=== PATIENT | male | born 1945 | race Caucasian/White ===

== ENCOUNTER 2016-09-29 | Outpatient (CLI) | payer MEDICARE, OTHER | END 2016-09-29 17:17 | disposition short-term general hospital (02) | CPT/HCPCS: A0170; A0425; A0426 ==

== ENCOUNTER 2016-09-29 07:50 | Inpatient (IN) | payer MEDICARE, OTHER ==
[2016-09-29] MEDS ORDERED: IPRATROPIUM/ALBUTEROL 3 ML NEB INH STA (08:14)
[2016-09-29] MEDS ORDERED: IPRATROPIUM/ALBUTEROL 3 ML NEB INH ONE (08:18)
[2016-09-29] MEDS ORDERED: FUROSEMIDE 40 MG/4 ML VIAL IVP STA (08:48)
[2016-09-29] MEDS ORDERED: FUROSEMIDE 40 MG/4 ML VIAL ONE (08:50)
[2016-09-29] MEDS ORDERED: ONDANSETRON 4 MG/2 ML VIAL IVP PRN (12:50)
[2016-09-29] MEDS ORDERED: IPRATROPIUM/ALBUTEROL 3 ML NEB INH PRN (12:50)
[2016-09-29] MEDS ORDERED: HYDROcod/ACETAM 10 MG/325 MG TABLET PO PRN (12:50)
[2016-09-29] MEDS ORDERED: HYDROcod/ACETAM 5/325 MG TABLET PO PRN (12:50)
[2016-09-29] MEDS ORDERED: ACETAMINOPHEN 325 MG TABLET PO PRN (12:50)
[2016-09-29] MEDS ORDERED: SODIUM CHLORIDE FLUSH 0.9% 10 ML SYRINGE IVP PRN (12:50)
[2016-09-29] MEDS ORDERED: METOPROLOL SUCCINATE 50 MG TABLET PO SCH (13:00)
[2016-09-29] MEDS ORDERED: LISINOPRIL 5 MG TABLET PO SCH (13:30)
[2016-09-29] MEDS ORDERED: SODIUM CHLORIDE FLUSH 0.9% 10 ML SYRINGE IVP SCH (14:00)
[2016-09-29] MEDS ORDERED: FUROSEMIDE 40 MG/4 ML VIAL IVP SCH (14:00)
[2016-09-29] MEDS ORDERED: NICOTINE 21 MG PATCH TOP SCH (14:30)
[2016-09-29] MEDS ORDERED: ASPIRIN 325 MG TABLET PO SCH (16:00)
[2016-09-29] MEDS ORDERED: HEPARIN 25,000 UNITS/500 ML 500 ML IV SCH (16:00)
[2016-09-29] MEDS ORDERED: ATORVASTATIN 40 MG TABLET PO ONE (16:00)
[2016-09-29] MEDS ORDERED: HEPARIN 5,000 UNIT/ML VIAL IVP ONE (16:30)
[2016-09-30] MEDS ORDERED: PANTOPRAZOLE 40 MG TABLET PO SCH (07:00)
[2016-09-30] MEDS ORDERED: POTASSIUM CHLORIDE 20 MEQ TABLET PO SCH (08:00)
[2016-09-30] MEDS ORDERED: ENOXAPARIN 40 MG/0.4 ML SYRINGE SUBQ SCH (09:00)
[2016-09-30] MEDS ORDERED: ASPIRIN EC 81 MG TABLET PO SCH (09:00)
[2016-09-30] MEDS ORDERED: POLYETHYLENE GLYCOL 3350 17 GM PACKET PO SCH (09:00)
== END 2016-09-29 17:15 | disposition short-term general hospital (02) | DRG 281 ==
DX: I25.10 Atherosclerotic heart disease of native coronary artery without angina pectoris (principal); R09.02 Hypoxemia; I50.9 Heart failure, unspecified; I21.4 Non-ST elevation (NSTEMI) myocardial infarction; E87.1 Hypo-osmolality and hyponatremia; I50.40 Unspecified combined systolic (congestive) and diastolic (congestive) heart failure; I11.0 Hypertensive heart disease with heart failure; Z95.5 Presence of coronary angioplasty implant and graft; J44.9 Chronic obstructive pulmonary disease, unspecified; F17.210 Nicotine dependence, cigarettes, uncomplicated; Z79.82 Long term (current) use of aspirin; Z79.51 Long term (current) use of inhaled steroids; Z79.899 Other long term (current) drug therapy; Z82.49 Family history of ischemic heart disease and other diseases of the circulatory system

== ENCOUNTER 2016-11-15 11:56 | Outpatient (CLI) | payer MEDICARE, OTHER ==
--- NOTE | 2016-11-15 13:07 | XRAY Report ---
TWO-VIEW CHEST: 11/15/2016 CLINICAL INDICATION: Cough, dyspnea. COMPARISON: 11/02/2010, 09/29/2016 FINDINGS: Frontal and lateral views of the chest demonstrate changes of previous cardiac surgery. T here are right greater than left basilar infiltrates present, with trace effusions. No pneumothorax. IMPRESSION: RIGHT GREATER THAN LEFT BASILAR INFILTRATES. JOB #: [id number] EXT JOB #:[id number]
== END 2016-11-15 11:57 | disposition home or self-care (01) ==
LOC: DI 11:56
PROVIDERS: ATTEND Internal Medicine
DX: R91.8 Other nonspecific abnormal finding of lung field (principal)
CPT/HCPCS: 71020

== ENCOUNTER 2018-06-26 09:40 | Outpatient (CLI) | payer MEDICARE, OTHER ==
--- NOTE | 2018-06-26 11:03 | XRAY Report ---
Reason: COUGH Procedure Date: 06/26/2018 Accession Number: [id number] / [id number] Procedure: XR - Chest 2 View X-Ray CPT Code: 65300 FULL RESULT: EXAM: CHEST RADIOGRAPHY EXAM DATE: 06/26/2018 09:52 AM. CLINICAL HISTORY: COUGH. COMPARISON: 11/15/2016. TECHNIQUE: 2 views. FINDINGS: Lungs/Pleura: Significantly improved aeration right lung compared to prior with residual peripheral right midlung scarring and persistent minimal right CP angle blunting. New airspace process left base with associated pleural effusion. Asymmetric pleural thickening left apex likely related to the effusion. Mediastinum: Heart and mediastinal contours are unremarkable except for poststernotomy changes. Other: Status post sternotomy with dehiscent superior sternal suture. IMPRESSION: New left lower lobe airspace process and pleural fluid appearing since 11/15/2016. Follow-up to complete radiographic clearing suggested. Changes of remote sternotomy. RADIA
== END 2018-06-26 09:41 | disposition home or self-care (01) ==
LOC: DI 09:40
PROVIDERS: ATTEND Internal Medicine
DX: R91.8 Other nonspecific abnormal finding of lung field (principal); J90 Pleural effusion, not elsewhere classified
CPT/HCPCS: 71046

== ENCOUNTER 2018-08-08 10:14 | Outpatient (CLI) | payer MEDICARE, OTHER ==
--- NOTE | 2018-08-08 11:08 | XRAY Report ---
Reason: COUGH Procedure Date: 08/08/2018 Accession Number: [id number] / [id number] Procedure: XR - Chest 2 View X-Ray CPT Code: 79303 FULL RESULT: EXAM: CHEST RADIOGRAPHY EXAM DATE: 08/08/2018 10:32 AM. CLINICAL HISTORY: Cough. COMPARISON: CHEST 2 VIEW 06/26/2018 9:45 AM. TECHNIQUE: 2 views. FINDINGS: Lungs/Pleura: There is persistent small layering pleural effusion at the left lung base with associated hazy opacity. A smaller right pleural effusion is also suspected. There is no new airspace disease. No pneumothorax. Mediastinum: Median sternotomy changes including tortuous calcified aorta and stable cardiac silhouette with prominent pulmonary arteries appear similar to prior. Other: None. IMPRESSION: Stable examination. Persistent opacification at the left lung base with associated pleural effusion. RADIA
== END 2018-08-08 10:15 | disposition home or self-care (01) ==
LOC: DI 10:14
PROVIDERS: ATTEND Internal Medicine
DX: R05 Cough (principal)
CPT/HCPCS: 71046

== ENCOUNTER 2018-11-21 11:17 | Outpatient (CLI) | payer MEDICARE, OTHER ==
[2018-11-21 11:31] LABS: VBG PH 7.332 (7.31-7.41)
[2018-11-21 11:41] LABS: ALBUMIN 3.8 g/dL (3.2-5.5); CALCIUM 9.1 mg/dL (8.5-10.3); CREATININE 0.8 mg/dL (0.6-1.2)
== END 2018-11-21 11:18 | disposition home or self-care (01) ==
LOC: LAB 11:17
PROVIDERS: ATTEND Internal Medicine
DX: D35.1 Benign neoplasm of parathyroid gland (principal)
CPT/HCPCS: 36415; 80048; 82040; 82330; 83970

== ENCOUNTER 2018-12-28 13:15 | Outpatient (CLI) | payer MEDICARE, OTHER ==
[2018-12-28] MEDS ORDERED: BUFFERED LIDOCAINE 10 ML SYRINGE ONE (14:15)
[2018-12-28] MEDS ORDERED: BUFFERED LIDOCAINE 10 ML SYRINGE IU ONE (16:09)
--- NOTE | 2018-12-28 16:12 | Ultrasound Report ---
Reason: NODULES Procedure Date: 12/28/2018 Accession Number: [id number] / [id number] Procedure: US - FNA Bx w/US Gnd les CPT Code: 48558 FULL RESULT: EXAM: Thyroid Fine Needle Aspiration EXAM DATE: 12/28/2018 01:41 PM. CLINICAL HISTORY: Nodules. COMPARISON: Outside thyroid ultrasound dated 10/10/2018. TECHNIQUE: The risks, benefits, and alternatives of the procedure were discussed with the patient. All questions were answered. Written and verbal consent were obtained. A site was marked over the right thyroid nodule in question under live sonographic evaluation, then subsequently prepped and draped in a sterile manner. Local anesthesia was performed with 1% lidocaine. A total of 4 passes with a 22 gauge were performed through the right thyroid nodule in question, then passed to the chemical compounder helper for preparation. Estimated blood loss was 0 mL. Sonographic images demonstrate needle placement within right thyroid nodule in question. Fluoroscopy Time: None. Number of Images: 33 sonographic images. FINDINGS IMPRESSION: Fine needle aspiration of the right thyroid nodule. Recommendation: Please note that multiple nodules on the left lobe of the thyroid are also moderately suspicious as noted on the previous report. Additionally, the patient has a vague history of previous thyroid surgery and the singular extrathyroidal hypoechoic nodule is greater than expected for size for a parathyroid adenoma raising concern for possible lymphadenopathy with atypia. Consider CT of the neck with intravenous contrast for further clarification of the soft tissue neck area to guide management and surveillance strategy for the left lobe of the thyroid as well as the nearby nodule. RADIA
== END 2018-12-28 13:16 | disposition home or self-care (01) ==
LOC: DI 13:15
PROVIDERS: ATTEND Internal Medicine
DX: E04.2 Nontoxic multinodular goiter (principal)
CPT/HCPCS: 10005

== ENCOUNTER 2019-01-10 10:45 | Outpatient (CLI) | payer MEDICARE, OTHER ==
[2019-01-10 11:09] LABS: CREATININE 0.6 mg/dL (0.6-1.2)
[2019-01-10] MEDS ORDERED: IOVERSOL 320 100 ML VIAL IVP ONE ×3 (11:11→14:29)
--- NOTE | 2019-01-11 13:13 | CT Report ---
Reason: PARATHYROID ADENOMA Procedure Date: 01/10/2019 Accession Number: [id number] / [id number] Procedure: CT - SOFT TISSUE NECK W/WO CPT Code: FULL RESULT: EXAM: CT SOFT TISSUE NECK WITH AND WITHOUT CONTRAST. EXAM DATE: 01/10/2019 12:11 PM. HISTORY: Parathyroid adenoma. COMPARISONS: PET NECK TO MID THIGH 09/26/2018 9:52 AM. TECHNIQUE: Routine soft tissue neck CT protocol. Reconstructions: Coronal and sagittal. IV contrast: ISOVUE 300 80 mL. Thin images in axial, coronal and sagittal planes were obtained without and with contrast in multiple phases. In accordance with CT protocol optimization, one or more of the following dose reduction techniques were utilized for this exam: automated exposure control, adjustment of mA and/or KV based on patient size, or use of iterative reconstructive technique. FINDINGS: Adenoma: There is a 3 mm arterially enhancing nodule just inferior to the left thyroid gland pole immediately adjacent to the hypertrophied thyroidal vein best seen on 10, image 218 series 9 and image 111 series 12. Washout is not established, possibly due to the adjacent thyroidal vein. Visualized Intracranial Contents: Unremarkable. Orbits: Symmetric and unremarkable. Sinuses: Visualized paranasal sinuses and mastoid air cells are clear. Oral cavity: The visualized oral cavity is unremarkable. The floor of the mouth is symmetric. Pharynx: Pharyngeal mucosa is unremarkable. The infratemporal fossa, parapharyngeal spaces, and retropharyngeal space are unremarkable. The base of the tongue is symmetric and unremarkable. The airway is patent. Larynx: Larynx and supraglottic airway are patent without mass lesion. Vocal cords are symmetric. The visualized trachea is unremarkable. Parotid and Submandibular Glands: Symmetric and unremarkable. Lymph Nodes: No enlarged lymph nodes are identified in the cervical, supraclavicular, and visualized superior mediastinal regions. Soft tissues: Soft tissues are unremarkable. No mass lesion or abnormal enhancement. Vascular Structures: There is severe atherosclerotic disease with greater than 50% narrowing of the vessel lumen and the bilateral carotid bifurcations. The proximal internal carotid artery lumen on the right measures 4.1 x 4.3 mm and is narrowed to 2.0 x 2.0 mm at the bifurcation as seen on image 123 series 9. Narrowing of the carotid lumen on the left is less severe with internal caliber of 5.0 x 2.0 mm on image 127 series 9 compared to a proximal ICA caliber of 4 x 5 mm. Thyroid Gland: Nodular, better characterized on the recent thyroid ultrasound. Lung: There is a 1.5 x 1.3 cm spiculated nodule in the left upper lung, see image 268 on axial images. Lymphadenopathy is seen in the mediastinum. Bones: No evidence of acute fracture or malalignment. There are moderate to severe degenerative changes of the cervical spine which are most pronounced at C5-C7. Other: None. IMPRESSION: Possible adenoma immediately inferior to the lower pole of the left thyroid gland immediately adjacent to the thyroidal vein. 1.5 x 1.3 cm spiculated nodule in the left upper lung, highly suspicious for malignancy. There is mediastinal lymphadenopathy and the visualized portion, FDG avid on prior PET/CT and presumably known. Bilateral visually significant carotid artery stenosis as measured above. RADIA
== END 2019-01-10 10:46 | disposition home or self-care (01) ==
LOC: LAB 10:45 → DI 10:46
PROVIDERS: ATTEND Internal Medicine
DX: D35.1 Benign neoplasm of parathyroid gland (principal); R91.1 Solitary pulmonary nodule; R59.0 Localized enlarged lymph nodes; I65.23 Occlusion and stenosis of bilateral carotid arteries
CPT/HCPCS: 36415; 70492; 82565; Q9967

== ENCOUNTER 2019-04-25 08:43 | Outpatient (CLI) | payer MEDICARE, OTHER ==
[2019-04-25] MEDS ORDERED: GADOBUTROL 10 MMOL/10 ML VIAL ONE (09:08)
[2019-04-25] MEDS ORDERED: GADOBUTROL 10 MMOL/10 ML VIAL IVP ONE (09:43)
--- NOTE | 2019-04-25 10:55 | MRI Report ---
Reason: LUNG CANCER, PARATHYROID ADENOMA Procedure Date: 04/25/2019 Accession Number: [id number] / [id number] Procedure: MRI - Brain W/WO CPT Code: FULL RESULT: EXAM: MRI BRAIN WITHOUT AND WITH CONTRAST EXAM DATE: 04/25/2019 09:52 AM. CLINICAL HISTORY: LUNG CANCER, PARATHYROID ADENOMA. COMPARISON: None. TECHNIQUE: Multiplanar, multisequence T1-weighted and fluid-sensitive MR sequences of the brain were performed. Sequences optimized for routine evaluation. Other: None. IV Contrast: Yes, without and with 7 mL Gadavist. FINDINGS: Parenchyma: No acute hemorrhage, mass, or infarct. Multiple areas of increased T2 signal involving white matter of bilateral cerebral hemispheres. No abnormal enhancement. Ventricles/Cisterns: Moderate enlargement of the lateral ventricles. Razo ratio 0.35. No mass-effect or midline shift. No abnormal extra-axial fluid collection or hemorrhage. Orbits: Symmetric and unremarkable. Sella Turcica: Unremarkable. IAC: Symmetric and unremarkable. Vasculature: Normal signal flow void is seen in the major arterial structures at the skull base. The dural sinuses are patent and enhance normally. Sinuses: No acute sinus disease. Bones: No focal pathologic appearing marrow signal changes. Other: None. IMPRESSION: 1. No evidence of intracranial metastatic disease. 2. Moderate microvascular white matter disease. 3. Moderate ventriculomegaly which may be seen with central volume loss or NPH. RADIA
== END 2019-04-25 08:44 | disposition home or self-care (01) ==
LOC: DI 08:43
PROVIDERS: ATTEND Internal Medicine Hematology & Oncology
DX: C34.90 Malignant neoplasm of unspecified part of unspecified bronchus or lung (principal); D35.1 Benign neoplasm of parathyroid gland; R90.82 White matter disease, unspecified; G93.89 Other specified disorders of brain
CPT/HCPCS: 70553; A9585

== ENCOUNTER 2019-04-28 12:11 | Emergency (ER) | payer MEDICARE, OTHER ==
--- NOTE | 2019-04-28 13:55 | ED Physician Documentation ---
History of Present Illness - Stated complaint Stated Complaint: MALE - Chief complaint Chief Complaint: General - History obtained from History obtained from: Patient - History of Present Illness Timing: Today (74-year-old gentleman with recent diagnosis of lung cancer, not currently under treatment yet. Had a PET scan yesterday. Last night he started to have progressive painless gross hematuria with some clots, and then this morning developed mild right flank pain. He is never had a kidney stone.) Review of Systems Constitutional: denies: Fever, Chills Cardiac: denies: Chest pain / pressure, Palpitations Respiratory: denies: Dyspnea, Cough GI: denies: Abdominal Pain, Nausea, Vomiting : reports: Frequency. denies: Dysuria PD PAST MEDICAL HISTORY - Past Medical History Cardiovascular: Hypertension, Coronary artery disease Respiratory: COPD Neuro: None Endocrine/Autoimmune: None GI: Colon polyps : None HEENT: None Psych: None Musculoskeletal: None Derm: None - Past Surgical History General: Appendectomy, Colonoscopy Cardiovascular: Coronary stent - Present Medications Home Medications: Ambulatory Orders Medication Instructions Recorded Confirmed Metoprolol Succinate [Toprol Xl] 50 mg PO DAILY 05/30/13 04/09/19 Aspirin Chewable [St Epi 81 mg PO DAILY 07/12/13 04/09/19 Aspirin] Albuterol Sulfate [Proair Hfa 2 puffs INH Q4H PRN 09/29/16 04/09/19 Inhaler] Ciprofloxacin HCl [Cipro] 500 mg PO BID #20 tablet 04/28/19 Hydrocodone/Acetaminophen 1 - 2 each PO Q6H PRN #14 tablet 04/28/19 [Hydrocodon-Acetaminophen 5-325] Lisinopril [Zestril] 20 mg PO 04/28/19 - Allergies Allergies/Adverse Reactions: Allergies Allergy/AdvReac Type Severity Reaction Status Date / Time No Known Drug Allergies Allergy Verified 04/28/19 12:24 - Social History Does the pt smoke?: Yes Smoking Status: Current every day smoker Does the pt drink ETOH?: No Does the pt have substance abuse?: No - Immunizations Immunizations: TDAP >10years/unknown - POLST Patient has POLST: No PD ED PE NORMAL - Vitals Vital signs reviewed: Yes - General General: Alert and oriented X 3, No acute distress - Cardiac Cardiac: RRR, No murmur - Respiratory Respiratory: No respiratory distress, Other (Wheezy) - Abdomen Abdomen: Soft, Non tender - Back Back: No CVA TTP, No spinal TTP - Extremities Extremities: No edema, No calf tenderness / cord - Neuro Neuro: Alert and oriented X 3, Normal speech - Psych Psych: Normal mood, Normal affect Results - Vitals Vitals: Vital Signs - 24 hr 04/28/19 04/28/19 12:23 15:42 Temperature 36.8 C Heart Rate 54 L 63 Respiratory 18 20 Rate Blood Pressure 158/60 H 204/74 H O2 Saturation 99 98 Oxygen O2 Source Room air - Labs Labs: Laboratory Tests 04/28/19 04/28/19 04/28/19 13:00 14:15 14:15 WBC 11.0 H RBC 4.43 L Hgb 13.7 L Hct 41.1 L MCV 92.8 MCH 30.9 MCHC 33.3 RDW 13.3 Plt Count 189 MPV 10.1 Neut # (Auto) 9.4 H Lymph # (Auto) 0.7 L Weld # (Auto) 0.8 Eos # (Auto) 0.1 Baso # (Auto) 0.1 Absolute Nucleated RBC 0.00 Nucleated RBC % 0.0 Sodium 133 L Potassium 4.2 Chloride 96 L Carbon Dioxide 27 Anion Gap 10.0 BUN 14 Creatinine 0.9 Estimated GFR (MDRD) 82 L Glucose 114 H Calcium 9.1 Total Bilirubin 0.9 AST 16 ALT 12 Alkaline Phosphatase 70 Total Protein 7.0 Albumin 3.9 Globulin 3.1 Albumin/Globulin Ratio 1.3 Lipase 26 Urine Color RED/BLOODY Urine Clarity CLOUDY Urine pH 5.5 Ur Specific [place] 1.025 Urine Protein >=300 H Urine Glucose (UA) NEGATIVE Urine Ketones TRACE Urine Occult Blood LARGE H Urine Nitrite POSITIVE H Urine Bilirubin NEGATIVE Urine Urobilinogen 1 (NORMAL) Ur Leukocyte Esterase TRACE H Urine RBC TNTC H Urine WBC 0-3 Ur Squamous Epith Cells RARE Squamous Urine Bacteria Moderate H Ur Microscopic Review INDICATED Urine Culture Comments INDICATED - Rads (name of study) CT IVP Radiology: EMP read contemporaneously (1. New right hydronephrosis, hydroureter demonstrating mildly hyperdense intraluminal material, possibly blood products in the setting of known hematuria. Delayed right nephrogram and absence of collecting system enhancement consistent with renal dysfunction. 2. Large rel atively narrow neck left inguinal hernia containing a loop of sigmoid colon without convincing obstruction or inflammation at this time. 3. Few mildly distended small bowel loops in the pelvis without discrete transition, may reflect a component of ileus. 4. Similar 34 mm infrarenal abdominal aortic aneurysm. 5. Similar loculated left pleural effusion, associated pleural- parenchymal opacity, right sided calcified pleural plaquing. 6. Other findings as noted above. ) PD MEDICAL DECISION MAKING - ED course ED course: 74-year-old gentleman presents with initially painless gross hematuria followed by flank pain. CT results and urinalysis as shown Case discussed by phone with Dr. Queen on-call for urology in [place], he recommends Cipro, pain control, and pushing oral fluids and outpatient follow-up. Departure - Departure Disposition: 01 Home, Self Care Clinical Impression: Pyelonephritis Hematuria Qualifiers: Hematuria type: gross Qualified Code(s): R31.0 - Gross hematuria Condition: Good Record reviewed to determine appropriate education?: Yes Instructions: Pyelonephritis Dc Prescriptions: Ciprofloxacin HCl [Cipro] 500 mg PO BID #20 tablet Hydrocodone/Acetaminophen [Hydrocodon-Acetaminophen 5-325] 1 - 2 each PO Q6H PRN #14 tablet PRN Reason: pain Comments: DRINK PLENTY OF FLUIDS, RETURN IF WORSE. I SPOKE WITH DR VIRGIE QUEEN, UROLOGY IN [place], CALL HIM FOR FOLLOWUP AT [phone]
[2019-04-28 14:06] LABS: BILIRUBIN,URINE NEGATIVE (NEGATIVE); GLUCOSE, URINE (UA) NEGATIVE (NEGATIVE); KETONES,URINE (UA) TRACE mg/dL (NEGATIVE); LEUKOCYTE ESTERASE, URINE TRACE (NEGATIVE); NITRITE,URINE POSITIVE (NEGATIVE); OCCULT BLOOD,URINE LARGE (NEGATIVE); PH,URINE 5.5 PH (5.0-7.5); PROTEIN,URINE >=300 mg/dL (NEGATIVE); UROBILINOGEN,URINE 1 (NORMAL) E.U./dL (NORMAL)
[2019-04-28 14:07] LABS: CLARITY,URINE CLOUDY (CLEAR)
[2019-04-28] MEDS ORDERED: IOVERSOL 320 100 ML VIAL IVP ONE ×2 (14:14→15:11)
[2019-04-28 14:28] LABS: BASOPHILS # (AUTO) 0.1 10^3/uL (0.0-0.1); BASOPHILS % (AUTO) 0.7 %; EOSINOPHILS # (AUTO) 0.1 10^3/uL (0.0-0.7); EOSINOPHILS % (AUTO) 0.5 %; HGB - HEMOGLOBIN 13.7 g/dL (14.0-18.0); LYMPHOCYTES # (AUTO) 0.7 10^3/uL (1.5-3.5); LYMPHOCYTES % (AUTO) 5.9 %; MEAN CORPUSCULAR HEMOGLOBIN 30.9 pg (27.0-31.0); MEAN CORPUSCULAR HGB CONC 33.3 g/dL (32.0-36.0); MEAN CORPUSCULAR VOLUME 92.8 fL (80.0-94.0); MEAN PLATELET VOLUME 10.1 fL (7.4-11.4); MONOCYTES # (AUTO) 0.8 10^3/uL (0.0-1.0); MONOCYTES % (AUTO) 6.8 %; NEUTROPHILS # (AUTO) 9.4 10^3/uL (1.5-6.6); NEUTROPHILS % (AUTO) 85.6 %; PLT - PLATELET COUNT 189 10^3/uL (130-450); RED BLOOD COUNT 4.43 10^6/uL (4.70-6.10); RED CELL DISTRIBUTION WIDTH 13.3 % (12.0-15.0)
[2019-04-28 14:33] LABS: BACTERIA,URINE Moderate /HPF (None Seen); RBC,URINE TNTC /HPF (0-5); SQUAMOUS EPITHELIAL CELL,UR RARE Squamous (<= Few)
[2019-04-28 14:50] LABS: ALBUMIN 3.9 g/dL (3.2-5.5); ALBUMIN/GLOBULIN RATIO 1.3 (1.0-2.2); BILIRUBIN,TOTAL 0.9 mg/dL (0.2-1.0); CALCIUM 9.1 mg/dL (8.5-10.3); CREATININE 0.9 mg/dL (0.6-1.2)
[2019-04-28] MEDS ORDERED: HYDROcod/ACETAM 5/325 MG TABLET PO STA (15:43)
--- NOTE | 2019-04-28 15:54 | CT Report ---
Reason: hematuria Procedure Date: 04/28/2019 Accession Number: [id number] / [id number] Procedure: CT - IVP CPT Code: FULL RESULT: EXAM: CT ABDOMEN AND PELVIS WITHOUT AND WITH CONTRAST (CT IVP) EXAM DATE: 04/28/2019 03:26 PM. CLINICAL HISTORY: Hematuria. COMPARISONS: ABDOMEN/PELVIS W/ 06/21/2016 8:50 AM ABDOMEN W/ 02/21/2019 8:28 AM PET NECK TO MID THIGH 09/26/2018 9:52 AM. TECHNIQUE: Routine helical imaging was performed through the kidneys, ureters and bladder in the precontrast, postcontrast and delayed phase. IV Contrast: OPTI 320 100ML. Reconstructions: Coronal and sagittal. In accordance with CT protocol optimization, one or more of the following dose reduction techniques were utilized for this exam: automated exposure control, adjustment of mA and/or KV based on patient size, or use of iterative reconstructive technique. FINDINGS: Lung Bases: Similar small loculated left pleural effusion and associated left basal pleural-parenchymal opacity, may reflect rounded atelectasis. Cardiomegaly. Coronary artery calcifications and/or stenting. Sternal wires. Calcified pleural plaquing on the right similar to prior. Liver: Similar calcified presumed hepatic granulomata. No new liver lesion. Gallbladder/Bile Ducts: Partially contracted gallbladder. No ductal enlargement. Spleen: Normal. Pancreas: Normal. Adrenal Glands: Stable 20 x 14 mm right adrenal nodule with attenuation measuring -4.0 HU, consistent with adenoma. Kidneys/Bladder: Right Kidney/Ureter: No renal or ureteral stones. Probable tiny right renal cortical cyst. Mild right hydronephrosis and hydroureter extending to the level of the urinary bladder. There is mildly hyperdense material in the right renal pelvis and ureter on the noncontrast images, may represent blood products in the setting of known hematuria, without significant enhancement on delayed images, degrading evaluation for intraluminal lesion. There is delayed nephrogram on the right with areas of mild cortical inhomogeneity. There is asymmetric right perinephric stranding.No convincing solid renal cortical mass. Left Kidney/Ureter: No renal or ureteral stones. No hydronephrosis or hydroureter. No masses. On delayed images, no collecting system filling defect. Bladder: Minimally distended with partial dependent opacification on delayed images. No obvious mass or wall thickening. No definite bladder calculi. Peritoneal Cavity/Bowel: No free air or free fluid. There is a large left inguinal hernia measuring up to at least 80 x 40 mm transverse with a 32 mm neck. There is indwelling sigmoid colon. No definite obstruction or inflammation at this time. No mass or acute inflammatory process. There is several loops of mildly distended small bowel in the pelvis without discrete transition, decompressed proximal loops, may reflect a component of ileus. No lymphadenopathy. Pelvic Organs: Mild prostatomegaly. Vasculature: There is diffuse aortoiliac atherosclerotic calcification. There is a fusiform infrarenal abdominal aortic aneurysm measuring 32 x 34 mm transverse, similar to prior. Bones: No acute fracture or suspicious bony lesion. Other: None. IMPRESSION: 1. New right hydronephrosis, hydroureter demonstrating mildly hyperdense intraluminal material, possibly blood products in the setting of known hematuria. Delayed right nephrogram and absence of collecting system enhancement consistent with renal dysfunction. 2. Large relatively narrow neck left inguinal hernia containing a loop of sigmoid colon without convincing obstruction or inflammation at this time. 3. Few mildly distended small bowel loops in the pelvis without discrete transition, may reflect a component of ileus. 4. Similar 34 mm infrarenal abdominal aortic aneurysm. 5. Similar loculated left pleural effusion, associated pleural-parenchymal opacity, right sided calcified pleural plaquing. 6. Other findings as noted above. RADIA ADDENDUM: 04/28/19 16:13 Discussed by phone with Dr. Perry on 04/28/2019 at 1613 hrs.
[2019-04-28] MEDS ORDERED: CIPROFLOXACIN 250 MG TABLET PO STA (16:49)
[2019-04-28 16:59] VITALS: BP 188/74
== END 2019-04-28 17:04 | disposition home or self-care (01) ==
LOC: ED 12:11
DX: N12 Tubulo-interstitial nephritis, not specified as acute or chronic (principal); R31.0 Gross hematuria; C34.90 Malignant neoplasm of unspecified part of unspecified bronchus or lung; J44.9 Chronic obstructive pulmonary disease, unspecified; J90 Pleural effusion, not elsewhere classified; F17.200 Nicotine dependence, unspecified, uncomplicated; I10 Essential (primary) hypertension; K40.90 Unilateral inguinal hernia, without obstruction or gangrene, not specified as recurrent; I71.4 Abdominal aortic aneurysm, without rupture; Z79.82 Long term (current) use of aspirin
CPT/HCPCS: 36415; 74178; 80053; 81001; 83690; 85025; 87086; 99283; 99284; A9270; Q9967; 81003

== ENCOUNTER 2019-11-20 13:47 | Outpatient (CLI) | payer MEDICARE, OTHER ==
--- NOTE | 2019-11-20 16:51 | SLEEP CARE CONSULTATION ---
Information from patient questionnaire entered by Radha Vargas. I have reviewed and concur with the information entered by Radha Vargas. This document represents the service I personally performed and the decisions made by me, Keven Lundberg MD, [facility]. History of Present Illness Reason for Visit: New patient Chief Complaint: reports: Snoring, Observed pauses in breathing Duration of Symptoms: 10 years Usual bedtime: 8:30pm Time it takes to fall asleep: 5 minutes Snores at night: Yes Observed to quit breathing while asleep: Yes Sleeps alone due to snoring: Yes Number of times waking at night: 3 Reasons for waking at night: reports: Bathroom Toss, Turn, or Twitch while sleeping: No Recalls having dreams: Yes Usually gets out of bed at: 8am Feels refreshed in the morning: Yes Morning headache: No Sleepy or fatigued during the day: No Ever fallen asleep while driving: No Takes day naps: No Dreams during day naps: No Prior sleep studies: No Additional HPI information: I had the pleasure of seeing Mr. Pollard today regarding the possibility of him having a sleep disorder. As you know, he is a 74 year old gentleman who complains of loud snore, observed apneas, and excessive daytime sleepiness for about 10 years. The patient tells me that he normally goes to bed around 8:30 pm, and it takes him approximately 5 minutes to fall asleep. He has been told that he snores loudly and irregularly at night. He has also been observed to stop breathing in his sleep. His has to sleep in a separate room. He can recall waking up on the average of 3 times during the night. Most of the time he wakes up because of having to use the bathroom. He has never awakened because of his own snoring, choking, oir having to gasp for air. There is not a lot of tossing and turning in his sleep. No somniloquy (sleep talking) or somnambulism (sleep walking). Generally he can recall having dreams. In the morning he usually gets up out of the bed around 8 a.m. not feeling refreshed nor rested. He usually does not have a morning headache. During the day he complains of feeling sleepy and fatigued. His score on [place] Sleepiness Scale is 13 out of 24. He has never fallen asleep while driving nor has had any accident due to sleepiness. He usually does not take naps during the day. Upon falling asleep during the day he denies having vivid dreams. He has never had sleep paralysis, experienced cataplexy or symptoms of restless leg syndrome. He denies having impaired concentration during the day. - Parasomnia Symptoms Ever been unable to move upon waking from sleep: No Ever felt weak in the knees when startled or emotional: No Bothered by creepy, crawly, restless sensations in legs: No Problems with memory or concentration: No Subjective Initial [place] Sleepiness Scale score: 13 Past Medical History Past Medical History: reports: Congestive Heart Failure, Coronary Heart Disease, Impotence Social History The patient's occupation is retired. Patient is and lives in [place]. Have you smoked in the past 12 months: Yes Cigarettes per day (20/pack): 10 Years of smokin Smoking Pack Years: 30.0 Alcohol use: Yes Alcohol amount and frequency: 2-3 daily Caffeine use: Yes Caffeine amount and frequency: 16 oz Family History Family history of sleep disordered breathing: No Allergies and Home Medications Drug allergies reviewed: Yes (NKDA) Home medication list reviewed: Yes (aspirin, ranitidine, losartan, metoprolol, Lipitor, bupropion, Spiriva) Review of Systems Weight loss over past 5 years: 40 Cardiovascular: reports: high blood pressure, leg or foot swelling, have to sleep sitting up Respiratory: reports: shortness of breath, wheeze, chronic cough Gastrointestinal: reports: heartburn Urinary: reports: frequency Neurological: denies: headaches, seizure, head trauma, disorientation, speech dysfunction, gait or balance problems, fainting or unconsciousness, other Psychiatric: denies: Attention Deficit Hyperactivity, anxiety, depression, mood disorder, claustrophobia, other Ear/Nose/Throat: reports: nose bleeds, wisdom teeth removed Endocrine: denies: thyroid disease, history of goiter, sluggishness, too hot or cold, excessive thirst, increased appetite, increased urination, unexplained weakness, other Musculoskeletal: denies: joint pain, neck pain, back pain, joint swelling, muscle pain or cramping, mobility problems, other Immunologic: reports: sneezing Physical Exam Vital signs obtained and entered by: Physical exam is deferred due to the COVID- 19 pandemic. Height: 6 ft Weight: 161 lb Body Mass Index: 21.8 BMI Classification: Healthy weight Impression and Plan IMPRESSION: 1. Obstructive Sleep Apnea-Hypopnea Syndrome, as suggested by history of loud and irregular snoring, observed cessation of breath while asleep, frequent awakenings during the night, unrefreshed sleep, and daytime hypersomnolence. Narrow oropharynx and obesity are common predisposing factors for obstructive sleep apnea-hypopnea syndrome. Pathophysiology of sleep-disordered breathing was discussed. I recommend proceeding to polysomnography to confirm the diagnosis and to assess severity. If he has significant sleep disordered breathing, a manual CPAP titration study will also be performed to find the optimal treatment pressure. I informed the patient of what the sleep studies involve and after some discussion, he agreed to proceed. Plan: 1. Schedule an in-laboratory polysomnography. 2. Avoid long distance driving or when feeling sleepy. 3. Avoid alcohol, sedative and muscle relaxant around bedtime. 4. Quit smoking cigarettes. 5. Return in 1 to 2 weeks after the study to discuss results and initiate therapy. I spent 100% of this visit face to face with the patient with greater than 50% of this was spent time counseling the patient and coordination of care.
== END 2019-11-20 13:48 | disposition home or self-care (01) ==
LOC: SC 13:47
PROVIDERS: ATTEND Internal Medicine Pulmonary Disease
DX: G47.10 Hypersomnia, unspecified (principal); R06.81 Apnea, not elsewhere classified; G47.8 Other sleep disorders; R06.83 Snoring
CPT/HCPCS: 99203; G0463; 99212

== ENCOUNTER 2019-11-24 20:20 | Outpatient (CLI) | payer MEDICARE, OTHER | END 2019-11-24 20:21 | disposition home or self-care (01) | LOC: SC 20:20 | PROVIDERS: ATTEND Internal Medicine Pulmonary Disease | DX: G47.33 Obstructive sleep apnea (adult) (pediatric) (principal); G47.61 Periodic limb movement disorder | CPT/HCPCS: 95810 ==

== ENCOUNTER 2020-01-24 15:16 | Outpatient (CLI) | payer MEDICARE, OTHER ==
--- NOTE | 2020-01-24 14:00 | SLEEP CARE CONSULTATION ---
Information from patient questionnaire entered by Radha Vargas. I have reviewed and concur with the information entered by Radha Vargas. This document represents the service I personally performed and the decisions made by me, Jen Crow, RN, MSN, [employer]. History of Present Illness Service Date and Time: 01/24/2020 1330 Initial [place] Sleepiness Scale score: 13 (in 2019) Additional HPI information: GUALBERTO VALENZUELA returns for a telemed follow up to discuss results of the recently performed polysomnography. I explained the pathophysiology behind obstructive sleep apnea. We then spent quite a bit of time discussing different treatment options. For mild obstructive sleep apnea, surgery and oral appliance are alternatives to nasal CPAP therapy but in moderate or severe cases, nasal CPAP is the most effective and reliable treatment. After some discussion, the patient opted to go with the nasal CPAP therapy. Nasal autoCPAP set at [id number] will be ordered with rationale explained. A manual titration study will be ordered if unable to find optimal pressure with office adjustments. I explained how CPAP machine works and what to expect when using the machine. Using CPAP every night in order to get used to it was emphasized. Patient a dvised to put CPAP mask on before getting into bed so as not to fall asleep without CPAP. To assist acclimation to CPAP use, it could also be used for a short time during day while reading or watching TV. The patient was instructed to call the CPAP supplier to discuss any mechanical problem that may occur. If the mask given is uncomfortable or is difficult to keep on through the night even with adjustment, contact the CPAP supplier as many will replace with another mask style if notified before 30 days. If snoring or perceives is not getting enough air or too much air from the machine, notify this office. AASM patient education PAP tips will be sent to patient. Patient counseled not drink alcohol less than 4 hours before bedtime as it can increase snoring and apnea. Patient was cautioned about risks of drowsy driving until sleepiness symptoms resolve. Sleep Study - Results Polysomnography/Home Sleep Study results: The quality of the study is good. The patient had very poor sleep efficiencythe patient was awake almost throughout the night. The sleep architecture was abnormal for sleep fragmentation and reduced amount of time spent in REM and slow wave sleep (N3). Respiratory monitoring showed mild obstructive sleep apneahypopnea (AHI = 6.3) associated with frequent arousals, oxyhemoglobin desaturation and mild hypoxia (nakul oxygen saturation of 88%). The patient only slept supine during this study (supine AHI = 6.3; non-supine = 0.00). Snore was light to loud in intensity. There was severe periodic leg movement of sleep contributing to the sleep fragmentation. Cardiac rhythm was sinus rhythm with occasional premature ventricular contractions. No abnormal behavior (parasomnia) observed during the night. Physical Exam Height: 6 ft Impression and Plan 1. Obstructive Sleep Apnea-Hypopnea Syndrome, mild, with lowest oxygen saturation of 88%. Possibly this is the cause of the patients symptoms of unrefreshed sleep, and excessive daytime sleepiness. Positive pressure therapy could benefit his insomnia. As mentioned above, the patient will be started on nasal autoCPAP therapy with pressure set at 4-15 cmH2O. A manual titration study will be completed if unable to find optimal treatment pressure with office adjustments. Compliance guidelines also reviewed. A copy of compliance guidelines will be sent to patient with AASM PAP tips. 2. Periodic limb movement, severe, that did fragment patients sleep. Periodic limb movement of sleep (PLMS) is characterized by episodes of repetitive limb movements that occur during sleep and usually involve the lower limbs. The etiology is unknown but can be associated with restless leg syndrome (RLS), neuropathy, spinal cord diseases, kidney disease, rheumatological disorders, narcolepsy, obstructive sleep apnea, and REM sleep behavior disorder. Other factors that can increase PLMS and/or RLS are heredity and iron deficiency as reflected by a low serum ferritin level below 50 to 75mcg / L. Several medications can precipitate or aggravate PLMS such as selective serotonin re- uptake inhibitor antidepressants, tricyclic antidepressants, lithium, and dopamine receptor antagonists with the exception of bupropion. Caffeine can also aggravate PLMS and should be avoided. Sleep hygiene methods can also improve sleep as well as lifestyle changes such as regular exercise. Patient was further evaluation is indicated as it fragmented his sleep. * Nasal auto CPAP therapy, pressure at 4-15 cm H2O. * Avoid alcohol consumption near bedtime. * Follow up with PCP to rule out etiology of PLMS. * The patient is again cautioned about driving until sleepiness completely resolves. * Return one month after CPAP obtained. I will assess response to therapy and compliance at that time. Visit Type: Telehealth Phone (to reduce risk of Covid 19 exposure) Patient Location: Home Location of Provider: Home Patient agrees and consents to this telehealth visit type: Yes Patient agrees to have their insurance billed: Yes Time Spent with Patient (minutes): 10+ Provider Statement: I spent 100% of the Telehealth Phone Call with the patient with greater than 50% spent counseling the patient and coordination of care.
== END 2020-01-24 15:17 | disposition home or self-care (01) ==
LOC: SC 15:16
PROVIDERS: ATTEND Nurse Practitioner Family
DX: G47.33 Obstructive sleep apnea (adult) (pediatric) (principal); G47.61 Periodic limb movement disorder

== ENCOUNTER 2020-03-27 13:48 | Outpatient (CLI) | payer MEDICARE, OTHER ==
--- NOTE | 2020-03-27 15:09 | SLEEP CARE CONSULTATION ---
Information from patient questionnaire entered by Justine Young. I have reviewed and concur with the information entered by Justine Young. This document represents the service I personally performed and the decisions made by me, Jen Crow, RN, MSN, CONTAINER SHOP WELDER. History of Present Illness Service Date and Time: 03/27/2020 1348 Previous diagnosis: Mild, Obstructive Sleep Apnea-Hypopnea Syndrome AHI: 6.3 Reason for follow up: first compliance Equipment type: CPAP Equipment obtained from: [facility] (in [place]- delay due to office move) Mask style: Nasal Backup mask available: No (keep current mask as spare when replaced) Last cushion change: ordered but have not received Prior sleep studies: Yes Year and Where: 2019 [facility] Type of Sleep Study: Polysomnography CPAP Compliance Data - Data Reviewed with Patient Average duration of nightly device use: 6h 23m Compliance rate %: 93 Current pressure setting (cmH2O): 4-15 Humidity setting: auto Heated hose setting: auto Average residual AHI: 24.9 (95th % 7.0 cmH20) Central apnea: 0.1 Obstructive apnea: 0.5 Hypopnea: 0.9 / unknown 23.4 Average large leak: 32 liters per minute Subjective Patient concerns: denies: mask discomfort, air blowing in eyes, mask leak noise, condensation in mask/hose, nasal congestion, dry mouth, nose, throat, epistaxis (none since starting ) Observed to snore while using device: No (single ) Current pressure setting perceived as: comfortable On therapy, patient: reports: sleeping better (reduced awakenings from 3-4 to use bathroom to 1 time a night/ less nmber of hours needed to feel ), awakening more refreshed, being more awake and alert during the day, more rested overall. denies: drowsiness while driving Initial [place] Sleepiness Scale score: 13 Allergies and Home Medications Known drug allergies: No Home medication list reviewed: No ( no changes ) Allergy and home medication list: metoprolol 100mg daily statin Hs asa 81mg short steroid course for a month for lung congestion by his oncologist Review of Systems Review of systems same as previous: No (lung congestion ) Physical Exam Blood Pressure: 160/62 (180/80 usually home / Dr aware monitoring) Cuff size: regular Heart Rate: 55 O2 Saturation: 96 Height: 6 ft Weight: 176 lb Body Mass Index: 23.8 BMI Classification: Healthy weight Impression and Plan 1. Obstructive Sleep Apnea-Hypopnea Syndrome, mild, with good treatment compliance and moderate elevation elevation of residual AHI that appears to be due to mask leaks. Despite that on CPAP therapy, the patient has better sleep quality and is significantly more rested overall. The patients pressure will be changed to autoCPAP 8-12 cmH20 For elevation of residual AHI. Patient advised to contact me if pressure change is uncomfortable so that it can be adjusted. Goals for apnea control discussed.To reduce mask leaks, he was advised to slightly tighten his mask headgear as well as change his cushions every 2 weeks when obtains. If mask leaks continue, I will discuss at next visit switching to nasal pillows to see if more effective. He has a miranda and mustache which can affect mask seal. He trimmed his mustache a week ago and this is when the residual started to lower. I showed him sample - Patient's apnea severity and rationale for treatment to reduce apnea, improve sleep quality and reduce cardiovascular and cerebrovascular events was reviewed. I also reviewed the benefit of consistent device use of CPAP for hypertension. * Changeauto CPAP pressure to 8-12 cmH2O * Notify me if snoring with mask or feeling that the pressure is too much or too little * Adjust mask and change cushions. * Call this office if any problems using CPAP * Return for follow up in 1 month , or sooner if concerns arise Visit Type: In Office Time Spent with Patient (minutes): 30 Provider Statement: I spent 100% of the Face to Face Visit with the patient with greater than 50% spent counseling the patient and coordination of care.
[2020-03-27 15:10] VITALS: BP 160/62
== END 2020-03-27 13:49 | disposition home or self-care (01) ==
LOC: SC 13:48
PROVIDERS: ATTEND Nurse Practitioner Family
DX: G47.33 Obstructive sleep apnea (adult) (pediatric) (principal)
CPT/HCPCS: 99214; G0463; 99212

== ENCOUNTER 2020-05-11 16:23 | Outpatient (CLI) | payer MEDICARE, OTHER ==
--- NOTE | 2020-05-11 17:32 | Ultrasound Report ---
PROCEDURE: Duplex Ext Veins Left INDICATIONS: LT LEG SWELLING TECHNIQUE: Real-time imaging, as well as color and pulse Doppler interrogation, were performed of the lower extr emity deep veins from the inguinal ligament to the popliteal fossa. COMPARISON: None. FINDINGS: The deep veins are normally compressible, and free of intraluminal thrombus. Color and pu lse Doppler demonstrate normal phasic intraluminal flow. There is normal augmentation response to di stal compression maneuver. Note is made of arterial atherosclerotic plaque. A presumed Oliva's cyst is seen that measures up to 4.1 cm. IMPRESSION: No findings of deep venous thrombosis are seen. Arterial atherosclerotic plaque noted. Reviewed by: Jose G Crawford MD on 05/11/2020 4:31 PM JUANA Approved by: Jose G Crawford MD on 05/11/2020 4:31 PM JUANA Station ID: [id number]
== END 2020-05-11 16:24 | disposition home or self-care (01) ==
LOC: DI 16:23
PROVIDERS: ATTEND Internal Medicine Hematology & Oncology
DX: I70.202 Unspecified atherosclerosis of native arteries of extremities, left leg (principal)

== ENCOUNTER 2020-05-28 09:54 | Outpatient (CLI) | payer MEDICARE, OTHER ==
--- NOTE | 2020-05-28 11:03 | SLEEP CARE CONSULTATION ---
Information from patient questionnaire entered by Michael Hyman. I have reviewed and concur with the information entered by Michael Hyman. This document represents the service I personally performed and the decisions made by me, Jen Crow, RN, MSN, MAILS SUPERVISOR. History of Present Illness Service Date and Time: 05/28/2020 0954 Previous diagnosis: Mild, Obstructive Sleep Apnea-Hypopnea Syndrome AHI: 6.3 Reason for follow up: other (2-month followup - pressure change) Equipment type: CPAP Equipment obtained from: [facility] (getting supplies as needed) Mask style: Nasal Mask brand: Respironics (Dreamwear) Backup mask available: No (save current mask when replaced for spare) Last cushion change: 3 weeks ago Prior sleep studies: Yes Year and Where: 2019 [facility] Type of Sleep Study: Polysomnography CPAP Compliance Data - Data Reviewed with Patient Average duration of nightly device use: 6 h 23 min Compliance rate %: 90 Current pressure setting (cmH2O): 4-15 Average residual AHI: 14.4 Central apnea: 0.2 Obstructive apnea: 0.5 Hypopnea: 1.0 and unknown apnea 12.7 Average large leak: 21.9 liters per minute Subjective Patient concerns: reports: aerophagia, mask leak noise (initially has to readjust mask alot to get leaks settled. ), epistaxis (noted increase in past 6 months prior to CPAP - an hour or so after CPAP . He is not on blood thinner except baby aspirin. Nose does not feel dry. 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 denies: mask discomfort, air blowing in eyes, condensation in mask/hose, nasal congestion, dry mouth, nose, throat Observed to snore while using device: No (single) Current pressure setting perceived as: comfortable On therapy, patient: reports: sleeping better, awakening more refreshed, being more awake and alert during the day, more rested overall. denies: drowsiness while driving Initial [place] Sleepiness Scale score: 13 (in 2019) Current [place] Sleepiness Scale score: 6 Allergies and Home Medications Known drug allergies: No Home medication list reviewed: No (no changes ) Review of Systems Review of systems same as previous: Yes Physical Exam Blood Pressure: 180/70 (monitors at home-165/80 usual) Cuff size: regular Heart Rate: 58 O2 Saturation: 97 Height: 6 ft Nasal exam: positive: erythema ( proximal septum), excoriation ( proximal septum ). negative: scabs, blood tinged nasal secretions Lungs: wheeze (Bilateral expiratorywheeze - patient has history of COPD and lung cancer - took his albuteral inhaler after exam and still wheezes 20 minutes later ), crackles (some crackles noted on exam 20 minutes after albuteral treatment) Impression and Plan 1. Obstructive Sleep Apnea-Hypopnea Syndrome, mild, with good treatment compliance and continued elevated residual AHI. On CPAP therapy, the patient has better sleep quality and is more rested overall. Residual AHI is less from better control of mask leaks. However, mask leaks continue to contribute to AHI elevation so patient advised to try new mask cushion pillow style to see if better fit. I discussed how he can track his mask leaks on his device so he can work on mask adjustment. He is also to change his mask cushion every 2 weeks to better seal. In addition, I will have staff change the autoCPAP pressure to 8- 12cm20 in office as this was not competed as ordered last visit. Patient shown how to check if his CPAP pressure changed on sample device. For frequent recurrent epitaxis, I gave him a sample of saline nasal spray to use 4 times a day until he can follow up with PCP to get a referral to an ENT for further evaluation. Exam today did not show any bloody secretions but there was erythema and excoriation of bilateral proximal septum. Patient's apnea severity and rationale for treatment to reduce apnea, improve sleep quality and reduce cardiovascular and cerebrovascular events was reviewed. I counseled patient on importance of using CPAP with all sleep to maximize benefit of treatment. 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 I also explained how use of his CPAP can reduce his nocturia. In addition I reviewed the benefit of consistent device use of CPAP for hypertension and his COPD. 2. Elevated blood pressure and expiratory wheezes bilateral lower lobes. -B/P 180/70. Patient reports he has lung congestion most of time, uses inhaler as needed. He also has intermittent shortness of breath. Lung CT done every 3-6 months after diagnosis and treatment of lung cancer last year. Blood pressure medications of metoprolol 100mg taken about 8:30am, 2 hours ago and takes losartan HS 20mg . Usual Blood pressure range 165/80 when he takes mid afternoon. Blood pressure retaken and still high 180/60. Lungs still have expiratory wheezes and some crackles through out. He denies having a temperature or change in intermittent shortness of breath. States he feels good. I offered chest xray but patient would prefer to follow up with PCP. Thus he was advised to contact his PCP today due to his medical history and Covid 19 pandemic precaution and patient agreed with plan. (Visor, mask, googles and gloves used in exam of patient). * * Changeauto CPAP pressure to 8-12 cmH2O * Try new nasal pillows * use Saline nasal spray as directed * Follow up with PCP as directed for evaluation of blood pressure, wheezes/ crackles of lungs, recurrent epitaxis. * Notify me if snoring with mask or feeling that the pressure is too much or too little * Call this office if any problems using CPAP * Return for follow up in 1-2 months , or sooner if concerns arise Visit Type: In Office Time Spent with Patient (minutes): 47 Provider Statement: I spent 100% of the Face to Face Visit with the patient with greater than 50% spent counseling the patient and coordination of care.
[2020-05-28 11:04] VITALS: BP 180/70
== END 2020-05-28 09:55 | disposition home or self-care (01) ==
LOC: SC 09:54
PROVIDERS: ATTEND Nurse Practitioner Family
DX: G47.33 Obstructive sleep apnea (adult) (pediatric) (principal); R04.0 Epistaxis; R03.0 Elevated blood-pressure reading, without diagnosis of hypertension; R06.2 Wheezing; Z79.82 Long term (current) use of aspirin
CPT/HCPCS: 99215; G0463; 99212

== ENCOUNTER 2020-07-09 12:51 | Outpatient (CLI) | payer MEDICARE, OTHER ==
--- NOTE | 2020-07-09 13:36 | SLEEP CARE CONSULTATION ---
Information from patient questionnaire entered by Radha Vargas. I have reviewed and concur with the information entered by Radha Vargas. This document represents the service I personally performed and the decisions made by , Courtney Law ARNP. History of Present Illness Service Date and Time: 07/09/2020 1251 Previous diagnosis: Mild, Obstructive Sleep Apnea-Hypopnea Syndrome AHI: 6.3 (in 2019) Reason for follow up: other (6 week with pressure change) Equipment type: CPAP Equipment obtained from: [facility] (getting supplies as needed) Mask style: Nasal Backup mask available: Yes (old mask) Last cushion change: 5 days Prior sleep studies: Yes Year and Where: 2019 - [facility] Type of Sleep Study: Polysomnography HPI additional information: GUALBERTO VALENZUELA was diagnosed to have mild, AHI 6.3, obstructive sleep apnea- hypopnea syndrome and returned today for CPAP therapy 6 week pressure change follow-up. CPAP Compliance Data - Data Reviewed with Patient Average duration of nightly device use: 9 Compliance rate %: 100 Current pressure setting (cmH2O): 8-12 Humidity settin Average residual AHI: 27.1 Central apnea: 0.1 Obstructive apnea: 0.2 Average large leak: 65.2 L/min Compliance data discussion: He was not able to get a new nasal pillows mask to try as ordered 6 weeks ago and was told he would have to wait until August by the DME. He is using the nasal cushion and thinks it is doing better now but continues to have leaking around the mask. He does have a full face miranda and mustache which he just had trimmed. He feels the leaking has reduced since getting the trim. Subjective Patient concerns: reports: mask leak noise (better since getting his mustache and miranda trimmed in the last 4-5 days), dry mouth, nose, throat, epistaxis (just one in last 6 weeks, improved). denies: aerophagia, mask discomfort, air blowing in eyes, condensation in mask/hose, nasal congestion, other Observed to snore while using device: No Current pressure setting perceived as: comfortable On therapy, patient: reports: sleeping better, awakening more refreshed, being more awake and alert during the day, more rested overall. denies: drowsiness while driving Initial [place] Sleepiness Scale score: 13 (in 2019) Current [place] Sleepiness Scale score: 11 Allergies and Home Medications Drug allergies reviewed: Yes (NKDA) Home medication list reviewed: Yes (no changes) Review of Systems Review of systems same as previous: Yes (no changes) Physical Exam Heart Rate: 57 O2 Saturation: 95 Height: 6 ft Weight: 172 lb Body Mass Index: 23.3 BMI Classification: Healthy weight Impression and Plan 1. Obstructive Sleep Apnea-Hypopnea Syndrome, mild, with excellent treatment compliance and poor apnea control with elevated residual AHI. On CPAP therapy, the patient has better sleep quality and is more rested overall. He did not received the nasal pillows mask with his last shipment of supplies as previously ordered. He states they told him he cannot get them until August unless someone from this office calls them. He is still having large air leaks that is most likely the cause of his elevated AHI. We will check with his DME about his supplies and see him back once he has been able to use the new mask. Mask leaks can be reduced by washing mask daily and changing mask cushions more frequently to improve mask seal and comfort. He has been using all of the water in reservoir and he has some oral dryness. Oral dryness can be reduced by adjus ting humidity setting higher or heated hose lower or by adjusting both settings. Oral dryness can also be reduced by reducing mask leaks. Patient only had one episode of epistaxis since he started using the nasal cream given at last visit. Patient's apnea severity and rationale for treatment to reduce apnea, improve sleep quality and reduce cardiovascular and cerebrovascular events was reviewed. I also reviewed the benefit of consistent device use of CPAP for hypertension and COPD. * Continue auto CPAP pressure at 8-12 cmH2O * Notify me if snoring with mask or feeling that the pressure is too much or too little * Attempt to lose weight * Call this office if any problems using CPAP * Return for follow up in 1-2 months , or sooner if concerns arise Counseling Topics: Spare mask, Weight loss health impact Visit Type: In Office Time Spent with Patient (minutes): 24 Provider Statement: I spent 100% of the Face to Face Visit with the patient with greater than 50% spent counseling the patient and coordination of care.
== END 2020-07-09 12:52 | disposition home or self-care (01) ==
LOC: SC 12:51
PROVIDERS: ATTEND Nurse Practitioner Family
DX: G47.33 Obstructive sleep apnea (adult) (pediatric) (principal)
CPT/HCPCS: 99212; G0463

== ENCOUNTER 2020-09-22 18:57 | Emergency (ER) | payer MEDICARE, OTHER ==
[2020-09-22] MEDS ORDERED: HYDROcod/ACET 5/325 Prepack 4 PO STA (20:25)
[2020-09-22] MEDS ORDERED: HYDROcod/ACETAM 5/325 MG TABLET PO STA (20:25)
[2020-09-22] MEDS ORDERED: TETANUS/DIPHTHERIA/PERTUSSIS 0.5 ML SYRINGE IM ONE (20:25)
--- NOTE | 2020-09-22 20:27 | ED Physician Documentation ---
PD HPI HEAD INJURY - Stated complaint Stated Complaint: FALL, HEAD INJ - Chief complaint Chief Complaint: Trauma Hd/Nk - History obtained from History obtained from: Patient - Additional information Additional information: 75-year-old gentleman with history of vascular disease and frequent falls fell getting out of his truck today. He hit his head and has a mild headache. He also notes that he hurt his knee and has multiple skin tears of the right upper extremity more than the left upper extremity. There was no loss of consciousness. Review of Systems Constitutional: reports: Reviewed and negative Ears: reports: Reviewed and negative Nose: reports: Reviewed and negative Throat: reports: Reviewed and negative Cardiac: reports: Reviewed and negative Respiratory: reports: Reviewed and negative PD PAST MEDICAL HISTORY - Past Medical History Cardiovascular: Hypertension, Coronary artery disease Respiratory: COPD Neuro: None Endocrine/Autoimmune: None GI: Colon polyps : None HEENT: None Psych: None Musculoskeletal: None Derm: None - Past Surgical History General: Appendectomy, Colonoscopy Cardiovascular: Coronary stent - Present Medications Home Medications: Ambulatory Orders Medication Instructions Recorded Confirmed Metoprolol Succinate [Toprol Xl] 50 mg PO DAILY 05/30/13 04/28/20 Aspirin Chewable [St Epi 81 mg PO DAILY 07/12/13 04/28/20 Aspirin] Albuterol Sulfate [Proair Hfa 2 puffs INH Q4H PRN 09/29/16 04/28/20 Inhaler] Lisinopril [Zestril] 20 mg PO DAILY 04/28/19 04/28/20 Prednisone 10 mg PO DAILY 03/03/20 04/28/20 HYDROcod/ACETAM 5/325 [[place] 5/325] 1 - 2 tab PO Q6H PRN #10 tablet 09/22/20 - Allergies Allergies/Adverse Reactions: Allergies Allergy/AdvReac Type Severity Reaction Status Date / Time No Known Drug Allergies Allergy Verified 04/28/20 13:53 - Social History Does the pt smoke?: Yes Smoking Status: Current every day smoker Does the pt drink ETOH?: No Does the pt have substance abuse?: No - Immunizations Immunizations: TDAP >10years/unknown - POLST Patient has POLST: No PD ED PE NORMAL - Vitals Vital signs reviewed: Yes - General General: Alert and oriented X 3, No acute distress, Other (He appears chronically but not acutely ill with a barrel chest and nicotine staining.) - HEENT HEENT: Other (He has asymmetric pupils with irregularity of the right 1, sequela of cataract repairs. Some bruising over the right forehead.) - Neck Neck: No bony TTP - Respiratory Respiratory: No respiratory distress - Abdomen Abdomen: Non tender - Back Back: No CVA TTP, No spinal TTP - Extremities Extremities: Other (Many many skin tears over the dorsum of the right forearm and some over the left forearm. The right knee is swollen and tender.) - Neuro Neuro: Alert and oriented X 3, Normal speech Results - Vitals Vitals: Vital Signs - 24 hr 09/22/20 09/22/20 09/22/20 19:02 21:05 22:22 Temperature 36 C L Heart Rate 50 L 60 62 Respiratory 16 21 20 Rate Blood Pressure 182/70 H 152/70 H 154/117 H O2 Saturation 100 96 96 Oxygen O2 Source Room air - Rads (name of study) CT of the head and neck without contrast Radiology: EMP read contemporaneously (No acute trauma, degenerative changes in the neck.) 4 view x-ray of the right knee Radiology: EMP read contemporaneously (Degenerative changes without acute trauma.) Procedures - Laceration (location) Ears of the right upper extremity and one of the left forearm Length in cm: 12 Wound type: Linear, Curved, Superficial Wound preparation: Irrigated copiously NS Skin layer closure: Dermabond, Steri strips Other: Tetanus booster given PD MEDICAL DECISION MAKING - ED course ED course: 75-year-old gentleman presents after a fall, multiple skin tears on both forear ms, Right worse than left. These were irrigated and dressed with Steri-Strips and Dermabond. Relevant imaging was negative for acute trauma. Departure - Departure Disposition: 01 Home, Self Care Clinical Impression: Multiple skin tears, Head injury, Contusion of right knee Condition: Good Record reviewed to determine appropriate education?: Yes Instructions: ED Head Injury Closed, ED Laceration Ext Skin Glue Prescriptions: HYDROcod/ACETAM 5/325 [[place] 5/325] 1 - 2 tab PO Q6H PRN #10 tablet PRN Reason: Pain Comments: Followup with your PCP and vascular surgeon. Return if worse. Discharge Date/Time: 09/22/20 22:26
--- NOTE | 2020-09-22 21:37 | CT Report ---
PROCEDURE: HEAD WO INDICATIONS: head injury TECHNIQUE: Noncontrast 4.5 mm thick angled axial sections acquired from the foramen magnum to the vertex. For r adiation dose reduction, the following was used: automated exposure control, adjustment of mA and/or kV according to patient size. COMPARISON: MRI brain 04/25/2019. FINDINGS: Image quality: There is mild motion artifact. CSF spaces: Basal cisterns are patent. No extra-axial fluid collections. There is mild to moderate cerebral volume loss with prominence of the ventricles and sulci. Brain: No intracranial hemorrhage, mass, or mass effect. There are subcortical and periventricular r ight matter hypodensities consistent with mild to moderate chronic small vessel ischemic changes.. G ray-white matter interface is normal. Skull and face: Calvarium and visualized facial bones are intact, without suspicious lesions. Sinuses: Visualized sinuses and mastoids are clear. IMPRESSION: 1. No acute intracranial abnormality. 2. Mild to moderate chronic white matter small vessel ischemic changes and cerebral volume loss. Reviewed by: Chris Addison MD on 09/22/2020 9:36 PM PST Approved by: Chris Addison MD on 09/22/2020 9:36 PM PST Station ID: [id number]
--- NOTE | 2020-09-22 21:48 | CT Report ---
PROCEDURE: CERVICAL SPINE WO INDICATIONS: head injury TECHNIQUE: Noncontrast 3 mm thick sections acquired from the skull base to the T4 level. Sagittal and coronal r eformats were then constructed. For radiation dose reduction, the following was used: automated exp osure control, adjustment of mA and/or kV according to patient size. COMPARISON: None. FINDINGS: Image quality: Excellent. Bones: No fractures or subluxation. There is slight reversal of the cervical lordosis centered at C 5-C6. Visualized osseous structures appear osteopenic, slightly limiting evaluation. Multilevel disc space narrowing is demonstrated including moderate to severe narrowing at C5-C6 and C6-C7 with endpla te sclerosis and osteophytosis. Moderate facet arthropathy is demonstrated throughout the cervical sp ine. There is also mild uncovertebral joint arthropathy in the lower cervical spine. Visualized super ior ribs are intact. Soft tissues: Prevertebral soft tissues are normal in thickness. No paravertebral hematomas. No ap ical pneumothoraces. There is scarring within the visualized lung apices. Asymmetric left pleural thi ckening is also partially visualized. There is extensive atherosclerotic vascular calcification inclu ding prominent bulky calcification in the carotid bulbs. There is asymmetric enlargement of the left thyroid lobe. IMPRESSION: 1. No fracture or subluxation. 2. Osteopenia of the visualized osseous structures limiting evaluation. 3. Slight reversal of the cervical lordosis. 4. Multilevel degenerative changes throughout the cervical spine including moderate to severe degener ative disc disease at C5-C6 and C6-C7. Reviewed by: Chris Addison MD on 09/22/2020 9:47 PM PST Approved by: Chris Addison MD on 09/22/2020 9:47 PM PST Station ID: [id number]
--- NOTE | 2020-09-22 22:16 | XRAY Report ---
PROCEDURE: Knee 4 View RT INDICATIONS: knee injury TECHNIQUE: 4 views of the right knee were acquired. COMPARISON: None. FINDINGS: Bones: No fractures or dislocations. There is moderate joint space narrowing in the medial compartme nt. No suspicious bony lesions. Soft tissues: There is a suspected small joint effusion. Diffuse vascular calcifications are demonstr ated. There is prepatellar soft tissue swelling. IMPRESSION: 1. No fracture or dislocation. 2. Moderate joint space narrowing in the medial compartment. Reviewed by: Chris Addison MD on 09/22/2020 10:15 PM PST Approved by: Chris Addison MD on 09/22/2020 10:15 PM PST Station ID: [id number]
[2020-09-22 22:22] VITALS: BP 154/117
== END 2020-09-22 22:26 | disposition home or self-care (01) ==
LOC: ED 18:57
DX: S09.90XA Unspecified injury of head, initial encounter (principal); S51.811A Laceration without foreign body of right forearm, initial encounter; S51.812A Laceration without foreign body of left forearm, initial encounter; S00.83XA Contusion of other part of head, initial encounter; S80.01XA Contusion of right knee, initial encounter; V58.4XXA Person boarding or alighting a pick-up truck or van injured in noncollision transport accident, initial encounter; Z23 Encounter for immunization; R29.6 Repeated falls; M50.322 Other cervical disc degeneration at C5-C6 level; M85.88 Other specified disorders of bone density and structure, other site; I10 Essential (primary) hypertension; Z79.82 Long term (current) use of aspirin; F17.200 Nicotine dependence, unspecified, uncomplicated
CPT/HCPCS: 12005; 70450; 72125; 73564; 90471; 90715; 99284; A9270; 12015

== ENCOUNTER 2020-10-20 10:53 | Outpatient (CLI) | payer MEDICARE, OTHER ==
--- NOTE | 2020-10-20 14:51 | CT Report ---
PROCEDURE: CHEST WO INDICATIONS: LUNG CA TECHNIQUE: Noncontrast 5 mm thick sections acquired from the pulmonary apices to the posterior costophrenic angl es. 7 mm thick coronal and sagittal MIP reformats were then acquired. For radiation dose reduction, the following was used: automated exposure control, adjustment of mA and/or kV according to patient size. COMPARISON: Several prior studies, the most recent is a CT from 04/21/2020 FINDINGS: Image quality: Adequate, although there is motion at the lung bases. Lungs and pleura: Left upper lobe linear consolidative changes are redemonstrated, with increasing c onfluence and further volume loss involving the left upper lobe. There is persistent subpleural conso lidative changes in the lateral lingula and left lower lobe towards the lung base to a stable degree. Stable small left pleural effusion dependently, and chronic loculated left lobe lateral fluid collec tion. Minor biapical emphysematous changes. Right-sided calcified pleural plaque and scattered subpleural calcified right upper lobe lung nodules are present. Noncalcified 6 mm right lower lobe lung nodule (4/186) is stable. No acute air space opacities. No pleural effusions or pneumothorax. Trachea is normal caliber. Bilat eral lower lobe central airways are mildly narrowed. Mediastinum: Heart size is enlarged and demonstrates heavy coronary calcification. There are median sternotomy changes present. No pericardial effusion. No mediastinal adenopathy by size criteria. De creased size of AP window lymph node measuring 9 mm. Thoracic aorta is normal in size. Heavy aortic arch calcification. Central pulmonary arteries are enlarged in the pulmonary outflow tract is dilated measuring 4.3 cm in diameter, stable Esophagus is normal in caliber. No hiatal hernia. Bones and chest wall: No suspicious bony lesions. There are multiple mild vertebral body compression fractures, specifically T1 T10, T11, and T12. There is a moderate severity compression fracture of T 7, similar compared to prior studies. T1 appears to be new. No axillary or supraclavicular adenopathy by size criteria. The thyroid gland is diminutive and there is a persistent low-density nodule caud al to the left pole Abdomen: There is severe subcutaneous edema. There is generalized mesenteric edema. There is heavy a therosclerotic calcification of the aorta and branch arteries. Upper abdominal organs are otherwise n ormal in the absence of contrast. IMPRESSION: 1. Fairly stable appearance of the left lung including left upper lobe masslike consolidation, lingul ar, and left lower lobe atelectatic changes and small left effusion. 2. Stable right pleural plaque and several nodules, largest 6 mm, likely related to asbestosis and gr anulomatous disease. 3. Development of fairly significant anasarca, mesenteric edema, and small upper abdominal ascites. 4. Chronic loculated left lateral lower lung fluid collection developing peripheral calcifications. 5. Several thoracic spine compression fractures. T1 appears to be new. Correlate with any symptoms an d consider interventional radiology consultation for vertebroplasty. Reviewed by: Nola Peña MD on 10/20/2020 1:50 PM AKST Approved by: Nola Peña MD on 10/20/2020 1:50 PM AKST Station ID: [id number]
== END 2020-10-20 10:54 | disposition home or self-care (01) ==
LOC: DI 10:53
PROVIDERS: ATTEND Internal Medicine Hematology & Oncology
DX: C34.90 Malignant neoplasm of unspecified part of unspecified bronchus or lung (principal); R91.8 Other nonspecific abnormal finding of lung field; M48.54XA Collapsed vertebra, not elsewhere classified, thoracic region, initial encounter for fracture

== ENCOUNTER 2020-10-21 14:50 | Inpatient (IN) | payer MEDICARE, OTHER ==
[2020-10-21 15:45] LABS: BASOPHILS % (AUTO) 0.7 %; EOSINOPHILS # (AUTO) 0.1 10^3/uL (0.0-0.7); EOSINOPHILS % (AUTO) 1.5 %; LYMPHOCYTES # (AUTO) 0.8 10^3/uL (1.5-3.5); LYMPHOCYTES % (AUTO) 13.9 %; MEAN CORPUSCULAR HEMOGLOBIN 30.8 pg (27.0-31.0); MEAN CORPUSCULAR HGB CONC 31.6 g/dL (32.0-36.0); MEAN CORPUSCULAR VOLUME 97.4 fL (80.0-94.0); MEAN PLATELET VOLUME 10.5 fL (7.4-11.4); MONOCYTES # (AUTO) 0.3 10^3/uL (0.0-1.0); MONOCYTES % (AUTO) 5.2 %; NEUTROPHILS # (AUTO) 4.3 10^3/uL (1.5-6.6); NEUTROPHILS % (AUTO) 78.5 %; PLT - PLATELET COUNT 149 10^3/uL (130-450); RED CELL DISTRIBUTION WIDTH 15.6 % (12.0-15.0); WHITE BLOOD COUNT 5.4 x10^3/uL (4.8-10.8)
[2020-10-21 15:49] LABS: VBG BASE EXCESS 4.2 mmol/L (-2 - +2); VBG PCO2 60.9 mmHg (41-51); VBG PH 7.334 (7.31-7.41); VBG PO2 25.2 mmHg (25-47); VBG TOTAL CO2 33.5 mmol/L (24-29)
--- NOTE | 2020-10-21 15:51 | XRAY Report ---
PROCEDURE: Chest 1 View X-Ray INDICATIONS: Chest Pain TECHNIQUE: One view of the chest was acquired. COMPARISON: CT chest dated 10/20/2020 FINDINGS: Surgical changes and devices: Sternotomy wires and CABG clips.. Redemonstrated masslike consolidation involving the left upper lobe, better characterized on recent C T chest dated yesterday. Please see report. Scattered right basilar patchy and groundglass opacities Left basilar consolidation, probable trace pleural fluid and atelectasis grossly unchanged since yest erday accounting for differences in imaging modality Mediastinum: Mediastinal contours appear normal. Heart size is normal. Bones and chest wall: No suspicious bony lesions. Overlying soft tissues appear unremarkable. IMPRESSION: No definite new focal consolidation since yesterday. Redemonstrated left upper lobe masslike opacity and left basilar consolidation and probable small left pleural effusion. Ill-defined groundglass opacities involving the right lung raising possibility of developing or early pulmonary edema. Please correlate clinically. If there is persistent clinical diagnostic uncertainty , recommend short interval follow-up chest radiographs after treatment for further assessment. Reviewed by: Iain Narayanan MD on 10/21/2020 3:50 PM PST Approved by: Iain Narayanan MD on 10/21/2020 3:50 PM PST Station ID: [id number]
[2020-10-21 15:59] LABS: BILIRUBIN,TOTAL 1.2 mg/dL (0.2-1.0); CALCIUM 8.7 mg/dL (8.5-10.3); CREATININE 0.9 mg/dL (0.6-1.2); TOTAL PROTEIN 5.9 g/dL (6.7-8.2)
[2020-10-21] MEDS ORDERED: FUROSEMIDE 40 MG/4 ML VIAL IVP STA (16:34)
--- NOTE | 2020-10-21 17:19 | ED Physician Documentation ---
History of Present Illness - Stated complaint Stated Complaint: SOA - Chief complaint Chief Complaint: Resp - History obtained from History obtained from: Patient - Additonal information Additional information: 75yM with pmh cad s/p cabg, lung ca s/p radiation, asthma, htn, p/w sob progressively worsening over past several days a/w worsening BL LE edema, weight gain, orthostasis, MCCOY, and abd distension. oncologist at [facility]. pt denies fevers, cp, back pain nausea diaphoresis. +cough productive of yellow phlegm. Review of Systems Ten Systems: 10 systems reviewed and negative Constitutional: denies: Fever, Chills Cardiac: denies: Chest pain / pressure Respiratory: reports: Dyspnea, Cough PD PAST MEDICAL HISTORY - Past Medical History Past Medical History: Yes Cardiovascular: Hypertension, Coronary artery disease Respiratory: COPD Neuro: None Endocrine/Autoimmune: None GI: Colon polyps : None HEENT: None Psych: None Musculoskeletal: None Derm: None - Past Surgical History General: Appendectomy, Colonoscopy Cardiovascular: Coronary stent - Present Medications Home Medications: Ambulatory Orders Medication Instructions Recorded Confirmed Metoprolol Succinate [Toprol Xl] 50 mg PO DAILY 05/30/13 04/28/20 Aspirin Chewable [St Epi 81 mg PO DAILY 07/12/13 04/28/20 Aspirin] Albuterol Sulfate [Proair Hfa 2 puffs INH Q4H PRN 09/29/16 04/28/20 Inhaler] Lisinopril [Zestril] 20 mg PO DAILY 04/28/19 04/28/20 Prednisone 10 mg PO DAILY 03/03/20 04/28/20 HYDROcod/ACETAM 5/325 [[place] 5/325] 1 - 2 tab PO Q6H PRN #10 tablet 09/22/20 - Allergies Allergies/Adverse Reactions: Allergies Allergy/AdvReac Type Severity Reaction Status Date / Time No Known Drug Allergies Allergy Verified 10/21/20 14:57 - Social History Does the pt smoke?: Yes Smoking Status: Current every day smoker Does the pt drink ETOH?: No Does the pt have substance abuse?: No - Immunizations Immunizations: TDAP >10years/unknown - POLST Patient has POLST: No PD ED PE NORMAL - Vitals Vital signs reviewed: Yes - General General: Alert and oriented X 3, No acute distress, Well developed/nourished - HEENT HEENT: Atraumatic, PERRL, EOMI - Neck Neck: Supple, no meningeal sign - Cardiac Cardiac: Other (bradycardic rate, irregular rhythm) - Respiratory Respiratory: Other (BL dependent crackles, coarse breath sounds) - Abdomen Abdomen: Non tender, Non distended - Male Male : Deferred - Rectal Rectal: Deferred - Back Back: No spinal TTP - Derm Derm: Normal color - Extremities Extremities: No deformity - Neuro Neuro: Alert and oriented X 3 - Psych Psych: Normal mood, Normal affect Results - Vitals Vitals: Vital Signs - 24 hr 10/21/20 10/21/20 10/21/20 14:57 15:46 16:35 Temperature 36.6 C Heart Rate 64 68 58 L Respiratory 24 18 18 Rate Blood Pressure 128/51 L 109/67 123/52 L O2 Saturation 99 100 98 10/21/20 17:24 Temperature Heart Rate 64 Respiratory 18 Rate Blood Pressure 116/52 L O2 Saturation 98 Oxygen O2 Source Room air - EKG (time done) 1557 Rate: Rate (enter#) (54) Rhythm: Sinus bradycardia (54 junctional bradycardia) - Labs Labs: Laboratory Tests 10/21/20 10/21/20 10/21/20 15:35 15:35 15:35 WBC 5.4 RBC 3.90 L Hgb 12.0 L Hct 38.0 L MCV 97.4 H MCH 30.8 MCHC 31.6 L RDW 15.6 H Plt Count 149 MPV 10.5 Neut # (Auto) 4.3 Lymph # (Auto) 0.8 L Major # (Auto) 0.3 Eos # (Auto) 0.1 Baso # (Auto) 0.0 Absolute Nucleated RBC 0.00 Nucleated RBC % 0.0 VBG pH VBG pCO2 VBG pO2 VBG HCO3 VBG Total CO2 VBG O2 Saturation VBG Base Excess Sodium 136 Potassium 3.4 L Chloride 96 L Carbon Dioxide 31 Anion Gap 9.0 BUN 17 Creatinine 0.9 Estimated GFR (MDRD) 82 L Glucose 123 H Calcium 8.7 Total Bilirubin 1.2 H AST 19 ALT 14 Alkaline Phosphatase 86 Troponin I High Sens 14.5 B-Natriuretic Peptide Total Protein 5.9 L Albumin 3.0 L Globulin 2.9 Albumin/Globulin Ratio 1.0 Lipase 22 10/21/20 10/21/20 15:35 15:35 WBC RBC Hgb Hct MCV MCH MCHC RDW Plt Count MPV Neut # (Auto) Lymph # (Auto) Major # (Auto) Eos # (Auto) Baso # (Auto) Absolute Nucleated RBC Nucleated RBC % VBG pH 7.334 VBG pCO2 60.9 H VBG pO2 25.2 VBG HCO3 31.7 H VBG Total CO2 33.5 H VBG O2 Saturation 42.0 L VBG Base Excess 4.2 H Sodium Potassium Chloride Carbon Dioxide Anion Gap BUN Creatinine Estimated GFR (MDRD) Glucose Calcium Total Bilirubin AST ALT Alkaline Phosphatase Troponin I High Sens B-Natriuretic Peptide 5311.00 H Total Protein Albumin Globulin Albumin/Globulin Ratio Lipase PD MEDICAL DECISION MAKING - ED course ED course: 75-year-old man with history of lung cancer and coronary artery disease status post CABG presents with junctional bradycardia and CHF exacerbation symptoms. Discussed with cardiology at [facility] who states that patient will benefit from withholding his metoprolol. No indication for pacemaker at this time. Will discuss with our hospitalist for possible admission here. Lasix given. Departure - Departure Disposition: 66 [facility] DC/Xfer Clinical Impression: CHF exacerbation, Junctional bradycardia, Shortness of breath, Leg swelling, Lung cancer
[2020-10-21] MEDS ORDERED: ONDANSETRON 4 MG/2 ML VIAL IVP PRN (18:06)
[2020-10-21] MEDS ORDERED: ACETAMINOPHEN 325 MG TABLET PO PRN (18:06)
[2020-10-21] MEDS ORDERED: SODIUM CHLORIDE FLUSH 0.9% 10 ML SYRINGE IVP PRN ×2 (18:06→18:49)
[2020-10-21] MEDS ORDERED: ALBUTEROL NEB 2.5 MG/3 ML INH PRN (18:12)
[2020-10-21] MEDS ORDERED: HYDROcod/ACETAM 5/325 MG TABLET PO PRN ×2 (18:14→18:49)
--- NOTE | 2020-10-21 18:15 | HISTORY & PHYSICAL EXAMINATION ---
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 Patient report he recently gained 20 pounds. He feel very short of breathing even when he walk about 15 feet. He report his bilateral lower extremity, abdomen, hand become "puffy". He denies fever, chill. He will report he saw his primary care about a 15 days ago, His primary care prescribed diuretics medicine only had for 12 days. Patient report his PCP worried about diuretics Medication affect his kidney function. He has no diuretic medications for 3 days. Patient also report he had radiation therapy for his lung cancer "I think the radiation therapy targeted my lung spot". He followed up with his oncologist Dr. Boudreaux. Routine laboratory tests show His BNP was over 5000.CT of the chest show fairly stable appearance Of the left lung, Stable right pleural plaque and several nodules, Development of fairly significant anasarca, mesenteric edema and small abdominal ascites, Chronic loculated left lateral lower lung fluid Collection, Several thoracic spinal compression fractures. Chest x-ray on today show no definite any new focal consolidation since yesterday, Right lung developed possibility of early pulmonary edema. Given above medical condition, medical team was consulted for admission. Discussed care goal for patient, Patient clearly state he is DNR/DNI. History - Past Medical History Cardiovascular: reports: Hypertension, Coronary artery disease Respiratory: reports: COPD Neuro: reports: None Endocrine/Autoimmune: reports: None GI: reports: Colon polyps : reports: None HEENT: reports: None Psych: reports: None Musculoskeletal: reports: None Derm: reports: None MRSA Hx?: No - Past Surgical History General: reports: Appendectomy, Colonoscopy Cardiovascular: reports: Coronary stent - Family & Social History Family History: Mother: , Father: Social History Notes: Patient reported he still is cigarette smoker. He reported he used to be alcohol drunker, But he quit for Couple of years. - POLST Patient has POLST: No Meds/Allgy - Home Medications Home Medications: Ambulatory Orders Medication Instructions Recorded Confirmed Aspirin Chewable [St Epi 81 mg PO DAILY 07/12/13 04/28/20 Aspirin] Albuterol Sulfate [Proair Hfa 2 puffs INH Q4H PRN 09/29/16 04/28/20 Inhaler] Atorvastatin Calcium [Lipitor] 80 mg PO DAILY 10/21/20 Metoprolol Succinate [Toprol Xl] 100 mg PO BID 10/21/20 buPROPion HCL [Bupropion HCl Sr] 150 mg PO BID 10/21/20 - Allergies Allergies/Adverse Reactions: Allergies Allergy/AdvReac Type Severity Reaction Status Date / Time No Known Drug Allergies Allergy Verified 10/21/20 14:57 Review of Systems - Constitutional Constitutional: reports: Fatigue, Weakness. denies: Fever, Chills, Malaise, Poor appetite, Diaphoresis - Eyes Eyes: denies: Pain, Field loss, Vision loss - Ears, Nose & Throat Ears, Nose & Throat: denies: Ear pain, Vertigo, Nosebleeds, Bleeding gums - Cardiovascular Cariovascular: reports: Edema, Exertional dyspnea, Orthopnea. denies: Irregular heart rate, Palpitations, Chest pain, Lightheadedness, Syncope - Respiratory Respiratory: reports: Cough, Orthopnea, SOB with exertion. denies: Sputum production, Wheezing, Hemoptysis, SOB at rest - Gastrointestinal Gastrointestinal: denies: Abdominal pain, Constipation, Diarrhea, Rectal bleeding, Black stools, Bloody stools, Nausea, Vomiting - Genitourinary Genitourinary: denies: Dysuria, Urgency - Musculoskeletal Musculoskeletal: denies: Muscle pain, Muscle aches - Integumentary Integumentary: denies: Pruritis, Lumps - Neurological Neurological: reports: General weakness. denies: Focal weakness, Headache, Dizziness, Numbness, Pre-existing deficit, Abnormal gait, Seizures, Incoordination, Slurred speech - Psychiatric Psychiatric: denies: Suicidal - Endocrine Endocrine: denies: Polyuria - Hematologic/Lymphatic Hematologic/Lymphatic: denies: Petechiae Prior Level of Functionality: Patient lives alone, Independent Exam - Vital Signs Vital Signs: Vital Signs x48h Temp Pulse Resp BP Pulse Ox 10/21/20 17:24 64 18 116/52 L 98 10/21/20 16:35 58 L 18 123/52 L 98 10/21/20 15:46 68 18 109/67 100 10/21/20 14:57 36.6 C 64 24 128/51 L 99 - Physical Exam General Appearance: positive: Alert, Mild distress. negative: Lethargic Eyes Bilateral: positive: Normal inspection, PERRL, No lid inflammation ENT: positive: ENT inspection nml, No signs of dehydration. negative: Purulent nasal drainage Neck: positive: Nml inspection, Trachea midline. negative: Thyromegaly, Tracheal deviation Respiratory: positive: Chest non-tender, Wheezes Cardiovascular: positive: Regular rate & rhythm, No murmur. negative: Tachycardia, Bradycardia, Systolic murmur, Diastolic murmur Peripheral Pulses: positive: 2+ Abdomen: positive: Non-tender, Nml bowel sounds. negative: Tenderness, Guarding, Rebound Back: positive: Nml inspection Skin: positive: Warm, Dry. negative: Cyanosis, Diaphoresis, Pallor Extremities: positive: Non-tender, Pedal edema. negative: Calf tenderness Neurologic/Psychiatric: positive: Oriented x3, Sensation nml, Mood/affect nml. negative: Weakness, Sensory loss, Facial droop, Slurred/abnml speech, Depressed mood/affect Conclusion/Plan - Problem List (1) CHF exacerbation Conclusion/Plan: Echo in 2017 show patient had 40% of EF. Patient reported he was off diuretics for 3 to 4 days. He report he has been gaining of weight of 20 pounds. Patient present Anasarca, lower extremity edema, abdomen distention, chest x-ray show new development of pulmonary edema. patient report orthopnea as well. BNP is over 5000. Patient was already given diuretics in the ER, we will continue Lasix 40 mg twice daily intravenous. Daily weight, fluid restriction, I&O, quality assurance monitor final, cafeteria monitor, vital signs monitor (2) Shortness of breath Conclusion/Plan: Patient reported he has very shortness of breathing when he walk 15 feet. Patient has history lung cancer s/p of radiation therapy, COPD severe, Current cigarette smoker, Chest x-ray also show new develop pulmonary edema. We will give the patient intravenous Lasix, Supplemental oxygen as needed, Duoneb for COPD as needed. (3) Lower extremity edema Conclusion/Plan: Patient show bilateral lower extremity edema, Patient also present mild erythema in the lower extremity. We will order ultrasound to rule out DVT. Continue intravenous Lasix for fluid overloaded. (4) Lung cancer Conclusion/Plan: Patient is to follow up with his oncologist advised, continue follow-up closely. (5) Junctional bradycardia Conclusion/Plan: Patient has V-pacemaker, Show in EKG junctional bradycardia. ER already call center medical director, recommended hold beta-marcel. We will continue telemetry. Troponin test is negative now. Patient denying chest pain. (6) COPD (chronic obstructive pulmonary disease) Conclusion/Plan: Patient has a history of severe COPD, We will add Duoneb, albuterol as needed for patient. (7) Cigarette smoker Conclusion/Plan: Discussed with the patient the importance to quit cigarette smoking, Advised the patient quit cigarette smoking - Lab Results Fish Bones: 10/22/20 05:02 10/22/20 05:02 Core Measures - Anticipated LOS I expect patient to be DC'd or transferred within 96 hours.: Yes - DVT/VTE - Prophylaxis VTE/DVT Device ordered at admit?: Yes VTE/DVT Prophylaxis med ordered at admit?: Yes
[2020-10-21] MEDS ORDERED: POTASSIUM CHLORIDE 20 MEQ TABLET PO STA ×2 (18:18→20:26)
[2020-10-21 18:28] LABS: C. PNEUMONIAE- RESP PCR PANEL NOT DETECTED
[2020-10-21] MEDS ORDERED: IPRATROPIUM/ALBUTEROL 3 ML NEB INH PRN (18:43)
[2020-10-21] MEDS: NICOTINE 14 MG PATCH TOP SCH (19:36)
[2020-10-21] MEDS ORDERED: APIXABAN 5 MG TABLET PO SCH (21:00)
[2020-10-21] MEDS: FAMOTIDINE 20 MG TABLET PO SCH (21:16)
--- NOTE | 2020-10-21 21:19 | Ultrasound Report ---
PROCEDURE: Duplex Ext Veins Bilateral INDICATIONS: Lewis TECHNIQUE: Real-time imaging, as well as color and pulse Doppler interrogation, were performed of the deep veins of both legs from the inguinal ligament to the popliteal fossa. COMPARISON: None FINDINGS: The bilateral deep veins are normally compressible, and free of intraluminal thrombus. Co brian and pulse Doppler demonstrate normal phasic intravascular flow. There is normal augmentation res ponse to distal compression maneuver. Diffuse edema is noted. On the left there is a 4.4 x 0.8 x 2.3 cm Oliva cyst posteriorly. IMPRESSION: 1. No evidence of DVT in the lower extremities bilaterally. 2. Left Oliva's cyst. 3. Fluid collection anterior to the knee of uncertain etiology. Possibly a joint effusion. 4. Lower extremity edema. Reviewed by: Scooter Mcdonald on 10/21/2020 9:18 PM [facility] Approved by: Scooter Mcdonald on 10/21/2020 9:18 PM [facility] Station ID: [id number]
[2020-10-21] MEDS: SODIUM CHLORIDE FLUSH 0.9% 10 ML SYRINGE IVP SCH (23:52)
[2020-10-22] MEDS ORDERED: SODIUM CHLORIDE FLUSH 0.9% 10 ML SYRINGE IVP SCH (01:00)
[2020-10-22] MEDS: FUROSEMIDE 40 MG/4 ML VIAL IVP SCH ×2 (05:38→15:39)
[2020-10-22] MEDS: SODIUM CHLORIDE FLUSH 0.9% 10 ML SYRINGE IVP SCH ×2 (05:38→17:52)
[2020-10-22 05:41] LABS: BASOPHILS # (AUTO) 0.1 10^3/uL (0.0-0.1); EOSINOPHILS # (AUTO) 0.1 10^3/uL (0.0-0.7); EOSINOPHILS % (AUTO) 2.3 %; HGB - HEMOGLOBIN 11.7 g/dL (14.0-18.0); LYMPHOCYTES % (AUTO) 21.1 %; MEAN CORPUSCULAR HEMOGLOBIN 31.1 pg (27.0-31.0); MEAN CORPUSCULAR HGB CONC 32.2 g/dL (32.0-36.0); MEAN CORPUSCULAR VOLUME 96.5 fL (80.0-94.0); MEAN PLATELET VOLUME 11.1 fL (7.4-11.4); MONOCYTES # (AUTO) 0.4 10^3/uL (0.0-1.0); MONOCYTES % (AUTO) 7.9 %; NEUTROPHILS # (AUTO) 3.3 10^3/uL (1.5-6.6); NEUTROPHILS % (AUTO) 67.3 %; PLT - PLATELET COUNT 132 10^3/uL (130-450); RED BLOOD COUNT 3.76 10^6/uL (4.70-6.10); RED CELL DISTRIBUTION WIDTH 15.8 % (12.0-15.0); WHITE BLOOD COUNT 4.8 x10^3/uL (4.8-10.8)
[2020-10-22] MEDS ORDERED: FUROSEMIDE 40 MG/4 ML VIAL IVP SCH (06:00)
[2020-10-22 06:01] LABS: CALCIUM 8.5 mg/dL (8.5-10.3); CREATININE 0.9 mg/dL (0.6-1.2)
[2020-10-22] MEDS ORDERED: ASPIRIN CHEW 81 MG TABLET PO SCH ×3 (09:00)
[2020-10-22] MEDS ORDERED: ENOXAPARIN 40 MG/0.4 ML SYRINGE SUBQ SCH ×2 (09:00)
[2020-10-22] MEDS: NICOTINE 14 MG PATCH TOP SCH (09:19)
[2020-10-22] MEDS: FAMOTIDINE 20 MG TABLET PO SCH ×2 (09:19→20:28)
--- NOTE | 2020-10-22 10:56 | PHARMACY PROGRESS NOTE ---
- Best Possible Medication History Admit Date and Time: 10/21/20 180 Processed by: Pharmacy Medication History completed: Yes Patient Interview: Completed (Pt interview completed by Emely 10/22) Secondary Source(s): Pharmacy records, Insurance records As the person ultimately responsible for medication therapy, providers are able to order a medication from an existing home medication list in [facility] via the "Reconcile Routine" prior to Confirmation of that medication by business support assistant. Such practice is discouraged except when the physician, in their clinical judgment, deems that a medical need exists for a medication without regard to previous use.
--- NOTE | 2020-10-22 14:25 | PROVIDER PROGRESS NOTE ---
Subjective - Prog Note Date Prog Note Date: 10/22/20 - Subjective Pt reports feeling: Improved Subjective: Patient reported he feels much better today. He report he had a lot of urination After patient was given intravenous diuretics. Nursing report patient had atrial fibrillation again. Patient denies chest pain, palpitation, fever, chill. Current Medications - Current Medications Current Medications: Active Medications Acetaminophen (Acetaminophen 325 Mg Tablet) 650 mg PO Q4HR PRN PRN Reason: Pain 1 to 4 Hydrocodone Bitart/Acetaminophen (Hydrocod/Acetam 5/325 Mg Tablet) 1 tab PO Q4HR PRN PRN Reason: PAIN Albuterol (Albuterol Neb 2.5 Mg/3 Ml) 2.5 mg INH RTQ4H PRN PRN Reason: Wheezing Albuterol/Ipratropium (Ipratropium/Albuterol 3 Ml Neb) 3 ml INH Q4HR PRN PRN Reason: Wheezing Apixaban (Apixaban 5 Mg Tablet) 5 mg PO BID [facility] Famotidine (Famotidine 20 Mg Tablet) 20 mg PO BID [facility] Last Admin: 10/22/20 09:19 Dose: 20 mg Documented by: Furosemide (Furosemide 40 Mg/4 Ml Vial) 40 mg IVP BIDDIURETIC [facility] Last Admin: 10/22/20 05:38 Dose: 40 mg Documented by: Influenza Virus Vaccine Quadrival (Flu Vacc [id number](6mos Up)/Pf 60 Mcg/0.5 Ml Syringe) 60 mcg IM .ONCE ONE Stop: 10/23/20 09:01 Nicotine (Nicotine 14 Mg Patch) 1 patch TOP DAILY [facility] Last Admin: 10/22/20 09:19 Dose: 1 patch Documented by: Ondansetron HCl (Ondansetron 4 Mg/2 Ml Vial) 4 mg IVP Q6HR PRN PRN Reason: Nausea / Vomiting Sodium Chloride (Sodium Chloride Flush 0.9% 10 Ml Syringe) 10 ml IVP PRN PRN PRN Reason: NEEDED PER PROVIDER ORDERS Sodium Chloride (Sodium Chloride Flush 0.9% 10 Ml Syringe) 10 ml IVP 0100,0900,1700 [facility] Last Admin: 10/22/20 05:38 Dose: 10 ml Documented by: Aspirin Chewable [St Epi Aspirin] 81 mg PO BID 07/12/13 Albuterol Sulfate [Proair Hfa Inhaler] 2 puffs INH Q4H PRN 09/29/16 Atorvastatin Calcium [Lipitor] 80 mg PO DAILY 10/21/20 Metoprolol Succinate [Toprol Xl] 200 mg PO DAILY 10/21/20 buPROPion HCL [Bupropion HCl Sr] 150 mg PO DAILY 10/21/20 Fluticasone 110 Mcg [Flovent] 2 puffs INH BID 10/22/20 Losartan [Cozaar] 50 mg PO DAILY 10/22/20 Tiotropium Mercer [Spiriva] 1 cap INH DAILY 10/22/20 Objective - Vital Signs/Intake & Output Vital Signs: Vital Signs x48h Temp Pulse Pulse Pulse Resp BP BP 10/22/20 11:48 36.4 C L 54 L 18 115/58 L 10/22/20 10:10 79 60 137/79 H 10/22/20 10:05 79 60 137/79 H 10/22/20 07:31 36.5 C 48 L 18 146/64 H BP Pulse Ox 10/22/20 11:48 99 10/22/20 10:10 134/53 H 10/22/20 10:05 134/53 H 10/22/20 07:31 94 Intake & Output: Intake & Output 10/19/20 10/20/20 10/21/20 10/22/20 23:59 23:59 23:59 23:59 Intake Total 100 630 Output Total 950 2095 Balance -850 -1465 - Objective General Appearance: positive: No acute distress, Alert. negative: Lethargic Eyes Bilateral: positive: Normal inspection, PERRL, No lid inflammation ENT: positive: ENT inspection nml, No signs of dehydration. negative: Purulent nasal drainage Neck: positive: Nml inspection, Trachea midline. negative: Thyromegaly, Tracheal deviation Respiratory: positive: Chest non-tender, No respiratory distress Cardiovascular: positive: Irregularly irregular. negative: No murmur, Tachycardia, Bradycardia, Systolic murmur Peripheral Pulses: 2+ Radial (R), 2+ Radial (L) Abdomen: positive: Non-tender, Nml bowel sounds. negative: Tenderness, Guarding, Rebound Back: positive: Nml inspection Skin: positive: Warm, Dry. negative: Cyanosis, Diaphoresis, Pallor Extremities: positive: Non-tender, Full ROM. negative: Calf tenderness Neurologic/Psychiatric: positive: Oriented x3, Sensation nml, Mood/affect nml. negative: Weakness, Sensory loss, Facial droop, Slurred/abnml speech, Depressed mood/affect - Lab Results Fish Bones: 10/22/20 05:02 10/22/20 05:02 Other Labs: Lab Results x24hrs 10/22/20 10/22/20 10/22/20 Range/Units 05:02 05:02 05:02 WBC 4.8 (4.8-10.8) x10^3/uL RBC 3.76 L (4.70-6.10) 10^6/uL Hgb 11.7 L (14.0-18.0) g/dL Hct 36.3 L (42.0-52.0) % MCV 96.5 H (80.0-94.0) fL MCH 31.1 H (27.0-31.0) pg MCHC 32.2 (32.0-36.0) g/dL RDW 15.8 H (12.0-15.0) % Plt Count 132 (130-450) 10^3/uL MPV 11.1 (7.4-11.4) fL Neut # (Auto) 3.3 (1.5-6.6) 10^3/uL Lymph # (Auto) 1.0 L (1.5-3.5) 10^3/uL [place] # (Auto) 0.4 (0.0-1.0) 10^3/uL Eos # (Auto) 0.1 (0.0-0.7) 10^3/uL Baso # (Auto) 0.1 (0.0-0.1) 10^3/uL Absolute Nucleated RBC 0.00 x10^3/uL Nucleated RBC % 0.0 /100WBC VBG pH (7.31-7.41) VBG pCO2 (41-51) mmHg VBG pO2 (25-47) mmHg VBG HCO3 (23-28) mmol/L VBG Total CO2 (24-29) mmol/L VBG O2 Saturation (60-80) % VBG Base Excess (-2 - +2) mmol/L Sodium 138 (135-145) mmol/L Potassium 3.7 (3.5-5.0) mmol/L Chloride 99 L (101-111) mmol/L Carbon Dioxide 30 (21-32) mmol/L Anion Gap 9.0 (6-13) BUN 17 (6-20) mg/dL Creatinine 0.9 (0.6-1.2) mg/dL Estimated GFR (MDRD) 82 L (>89) Glucose 82 (70-100) mg/dL Calcium 8.5 (8.5-10.3) mg/dL Total Bilirubin (0.2-1.0) mg/dL AST (10-42) IU/L ALT (10-60) IU/L Alkaline Phosphatase (42-121) IU/L Troponin I High Sens (2.3-19.7) ng/L B-Natriuretic Peptide 6080.00 H (5-100) pg/mL Total Protein (6.7-8.2) g/dL Albumin (3.2-5.5) g/dL Globulin (2.1-4.2) g/dL Albumin/Globulin Ratio (1.0-2.2) Lipase (22-51) U/L Nasal Adenovirus (PCR) Nasal B. parapertussis DNA (PCR) Nasal Coronavir 229E PCR Nasal Coronavir HKU1 PCR Nasal Coronavir NL63 PCR Nasal Coronavir OC43 PCR Nasal Enterovir/Rhinovir PCR Nasal Influenza B PCR Nasal Influenza A PCR Nasal Parainfluen 1 PCR Nasal Parainfluen 2 PCR Nasal Parainfluen 3 PCR Nasal Parainfluen 4 PCR Nasal RSV (PCR) Nasal B.pertussis DNA PCR Nasal C.pneumoniae (PCR) Moshe Human Metapneumo PCR Nasal M.pneumoniae (PCR) Nasal SARS-CoV-2 (PCR) 10/21/20 10/21/20 10/21/20 Range/Units 15:35 15:35 15:35 WBC (4.8-10.8) x10^3/uL RBC (4.70-6.10) 10^6/uL Hgb (14.0-18.0) g/dL Hct (42.0-52.0) % MCV (80.0-94.0) fL MCH (27.0-31.0) pg MCHC (32.0-36.0) g/dL RDW (12.0-15.0) % Plt Count (130-450) 10^3/uL MPV (7.4-11.4) fL Neut # (Auto) (1.5-6.6) 10^3/uL Lymph # (Auto) (1.5-3.5) 10^3/uL [place] # (Auto) (0.0-1.0) 10^3/uL Eos # (Auto) (0.0-0.7) 10^3/uL Baso # (Auto) (0.0-0.1) 10^3/uL Absolute Nucleated RBC x10^3/uL Nucleated RBC % /100WBC VBG pH 7.334 (7.31-7.41) VBG pCO2 60.9 H (41-51) mmHg VBG pO2 25.2 (25-47) mmHg VBG HCO3 31.7 H (23-28) mmol/L VBG Total CO2 33.5 H (24-29) mmol/L VBG O2 Saturation 42.0 L (60-80) % VBG Base Excess 4.2 H (-2 - +2) mmol/L Sodium (135-145) mmol/L Potassium (3.5-5.0) mmol/L Chloride (101-111) mmol/L Carbon Dioxide (21-32) mmol/L Anion Gap (6-13) BUN (6-20) mg/dL Creatinine (0.6-1.2) mg/dL Estimated GFR (MDRD) (>89) Glucose (70-100) mg/dL Calcium (8.5-10.3) mg/dL Total Bilirubin (0.2-1.0) mg/dL AST (10-42) IU/L ALT (10-60) IU/L Alkaline Phosphatase (42-121) IU/L Troponin I High Sens 14.5 (2.3-19.7) ng/L B-Natriuretic Peptide 5311.00 H (5-100) pg/mL Total Protein (6.7-8.2) g/dL Albumin (3.2-5.5) g/dL Globulin (2.1-4.2) g/dL Albumin/Globulin Ratio (1.0-2.2) Lipase (22-51) U/L Nasal Adenovirus (PCR) Nasal B. parapertussis DNA (PCR) Nasal Coronavir 229E PCR Nasal Coronavir HKU1 PCR Nasal Coronavir NL63 PCR Nasal Coronavir OC43 PCR Nasal Enterovir/Rhinovir PCR Nasal Influenza B PCR Nasal Influenza A PCR Nasal Parainfluen 1 PCR Nasal Parainfluen 2 PCR Nasal Parainfluen 3 PCR Nasal Parainfluen 4 PCR Nasal RSV (PCR) Nasal B.pertussis DNA PCR Nasal C.pneumoniae (PCR) Moshe Human Metapneumo PCR Nasal M.pneumoniae (PCR) Nasal SARS-CoV-2 (PCR) 10/21/20 10/21/20 10/21/20 Range/Units 15:35 15:35 15:32 WBC 5.4 (4.8-10.8) x10^3/uL RBC 3.90 L (4.70-6.10) 10^6/uL Hgb 12.0 L (14.0-18.0) g/dL Hct 38.0 L (42.0-52.0) % MCV 97.4 H (80.0-94.0) fL MCH 30.8 (27.0-31.0) pg MCHC 31.6 L (32.0-36.0) g/dL RDW 15.6 H (12.0-15.0) % Plt Count 149 (130-450) 10^3/uL MPV 10.5 (7.4-11.4) fL Neut # (Auto) 4.3 (1.5-6.6) 10^3/uL Lymph # (Auto) 0.8 L (1.5-3.5) 10^3/uL [place] # (Auto) 0.3 (0.0-1.0) 10^3/uL Eos # (Auto) 0.1 (0.0-0.7) 10^3/uL Baso # (Auto) 0.0 (0.0-0.1) 10^3/uL Absolute Nucleated RBC 0.00 x10^3/uL Nucleated RBC % 0.0 /100WBC VBG pH (7.31-7.41) VBG pCO2 (41-51) mmHg VBG pO2 (25-47) mmHg VBG HCO3 (23-28) mmol/L VBG Total CO2 (24-29) mmol/L VBG O2 Saturation (60-80) % VBG Base Excess (-2 - +2) mmol/L Sodium 136 (135-145) mmol/L Potassium 3.4 L (3.5-5.0) mmol/L Chloride 96 L (101-111) mmol/L Carbon Dioxide 31 (21-32) mmol/L Anion Gap 9.0 (6-13) BUN 17 (6-20) mg/dL Creatinine 0.9 (0.6-1.2) mg/dL Estimated GFR (MDRD) 82 L (>89) Glucose 123 H (70-100) mg/dL Calcium 8.7 (8.5-10.3) mg/dL Total Bilirubin 1.2 H (0.2-1.0) mg/dL AST 19 (10-42) IU/L ALT 14 (10-60) IU/L Alkaline Phosphatase 86 (42-121) IU/L Troponin I High Sens (2.3-19.7) ng/L B-Natriuretic Peptide (5-100) pg/mL Total Protein 5.9 L (6.7-8.2) g/dL Albumin 3.0 L (3.2-5.5) g/dL Globulin 2.9 (2.1-4.2) g/dL Albumin/Globulin Ratio 1.0 (1.0-2.2) Lipase 22 (22-51) U/L Nasal Adenovirus (PCR) NOT DETECTED Nasal B. parapertussis DNA (PCR) NOT DETECTED Nasal Coronavir 229E PCR NOT DETECTED Nasal Coronavir HKU1 PCR NOT DETECTED Nasal Coronavir NL63 PCR NOT DETECTED Nasal Coronavir OC43 PCR NOT DETECTED Nasal Enterovir/Rhinovir PCR NOT DETECTED Nasal Influenza B PCR NOT DETECTED Nasal Influenza A PCR NOT DETECTED Nasal Parainfluen 1 PCR NOT DETECTED Nasal Parainfluen 2 PCR NOT DETECTED Nasal Parainfluen 3 PCR NOT DETECTED Nasal Parainfluen 4 PCR NOT DETECTED Nasal RSV (PCR) NOT DETECTED Nasal B.pertussis DNA PCR NOT DETECTED Nasal C.pneumoniae (PCR) NOT DETECTED Moshe Human Metapneumo PCR NOT DETECTED Nasal M.pneumoniae (PCR) NOT DETECTED Nasal SARS-CoV-2 (PCR) NOT DETECTED ABX Reporting Has patient been on IV antibiotics over the past 48 hours?: No Assessment/Plan - Problem List (1) A-fib Impression: Patient present afib in tele strip, pt had once at admission, will order EKG again. pt's chadsvasc score is high at 5. will hold aspirin 81mg, and lovenox, add Eliquis bid. pt's heart rate is slight bradycardia, continue hold Metoprolol. continue tele monitor (2) CHF exacerbation Conclusion/Plan: 10/22 Today echo show his EF is worsening 30 to 35% From previous 40%, Also patient had new elevated RVSP 62mmHg, moderate elevated abnormal right heart pressure. today BNP elevated to over 6000 but pt feel better and leg edema was reduced as well. We will continue intravenous Lasix, continue fluids restriction, continue daily weight. Echo in 2016 show patient had 40% of EF. Patient reported he was off diuretics for 3 to 4 days. He report he has been gaining of weight of 20 pounds. Patient present Anasarca, lower extremity edema, abdomen distention, chest x-ray show new development of pulmonary edema. patient report orthopnea as well. BNP is over 5000. Patient was already given diuretics in the ER, we will continue Lasix 40 mg twice daily intravenous. Daily weight, fluid restriction, I&O, javascript front end developer, chief wheelage clerk, vital signs monitor (3) Shortness of breath Conclusion/Plan: 1217, patient reported he feels much better today for shortness of breathing. We will continue intravenous Lasix for diuretics. Patient reported he has very shortness of breathing when he walk 15 feet. Patient has history lung cancer s/p of radiation therapy, COPD severe, Current cigarette smoker, Chest x-ray also show new develop pulmonary edema. We will give the patient intravenous Lasix, Supplemental oxygen as needed, Duoneb for COPD as needed. (4) Lower extremity edema Conclusion/Plan: 10/22, Improved significantly, Ultrasound of lower extremity revealed no DVT. Continue intravenous diuretics. Patient show bilateral lower extremity edema, Patient also present mild erythema in the lower extremity. We will order ultrasound to rule out DVT. Continue intravenous Lasix for fluid overloaded. (5) Lung cancer Conclusion/Plan: Patient is to follow up with his oncologist advised, continue follow-up closely. (6) Junctional bradycardia Conclusion/Plan: Patient has V-pacemaker, Show in EKG junctional bradycardia. ER already call service unit operator, recommended hold beta-marcel. We will continue telemetry. Troponin test is negative now. Patient denying chest pain. (7) COPD (chronic obstructive pulmonary disease) Conclusion/Plan: Patient has a history of severe COPD, We will add Duoneb, albuterol as needed for patient. (8) Cigarette smoker Conclusion/Plan: Discussed with the patient the importance to quit cigarette smoking, Advised the patient quit cigarette smoking
[2020-10-22] MEDS ORDERED: LOSARTAN 50 MG TABLET PO SCH (18:42)
[2020-10-22] MEDS: LOSARTAN 50 MG TABLET PO SCH (20:28)
[2020-10-22] MEDS: APIXABAN 5 MG TABLET PO SCH (20:28)
[2020-10-23] MEDS: SODIUM CHLORIDE FLUSH 0.9% 10 ML SYRINGE IVP SCH ×2 (01:30→05:41)
[2020-10-23 05:39] LABS: BASOPHILS % (AUTO) 0.6 %; EOSINOPHILS # (AUTO) 0.1 10^3/uL (0.0-0.7); EOSINOPHILS % (AUTO) 1.9 %; HGB - HEMOGLOBIN 12.2 g/dL (14.0-18.0); LYMPHOCYTES # (AUTO) 0.9 10^3/uL (1.5-3.5); LYMPHOCYTES % (AUTO) 20.3 %; MEAN CORPUSCULAR HEMOGLOBIN 30.5 pg (27.0-31.0); MEAN CORPUSCULAR HGB CONC 31.9 g/dL (32.0-36.0); MEAN CORPUSCULAR VOLUME 95.8 fL (80.0-94.0); MEAN PLATELET VOLUME 10.4 fL (7.4-11.4); MONOCYTES # (AUTO) 0.3 10^3/uL (0.0-1.0); MONOCYTES % (AUTO) 7.3 %; NEUTROPHILS # (AUTO) 3.2 10^3/uL (1.5-6.6); NEUTROPHILS % (AUTO) 69.7 %; PLT - PLATELET COUNT 143 10^3/uL (130-450); RED CELL DISTRIBUTION WIDTH 15.7 % (12.0-15.0); WHITE BLOOD COUNT 4.6 x10^3/uL (4.8-10.8)
[2020-10-23] MEDS: FUROSEMIDE 40 MG/4 ML VIAL IVP SCH (05:41)
[2020-10-23 06:18] LABS: CALCIUM 8.5 mg/dL (8.5-10.3); CREATININE 0.9 mg/dL (0.6-1.2)
[2020-10-23] MEDS ORDERED: NITROGLYCERIN SL 0.4 MG TABLET SL PRN (08:08)
[2020-10-23] MEDS ORDERED: FLU VACC QS2020-21(6MOS UP)/PF 60 MCG/0.5 ML SYRINGE IM ONE (09:00)
[2020-10-23] MEDS ORDERED: MORPHINE 2 MG/ML CARPUJECT IVP PRN (09:06)
[2020-10-23] MEDS: LOSARTAN 50 MG TABLET PO SCH (09:42)
[2020-10-23] MEDS: FAMOTIDINE 20 MG TABLET PO SCH (09:43)
[2020-10-23] MEDS: APIXABAN 5 MG TABLET PO SCH (09:44)
[2020-10-23] MEDS: NICOTINE 14 MG PATCH TOP SCH (09:46)
[2020-10-23 09:58] LABS: CHOL/HDL RATIO 2.1 (<5.0); CHOLESTEROL 122 mg/dL; HDL CHOLESTEROL 58 mg/dL; LDL CHOLESTEROL,CALCULATED 52 mg/dL; LDL/HDL RATIO 0.9 (<3.6); VLDL CHOLESTEROL 12 mg/dL
[2020-10-23] MEDS ORDERED: ASPIRIN 325 MG TABLET PO SCH (10:00)
[2020-10-23] MEDS ORDERED: ATORVASTATIN 40 MG TABLET PO SCH (10:00)
--- NOTE | 2020-10-23 10:53 | DISCHARGE SUMMARY ---
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 Not pt report he has no chest pain. Troponin is 500 now. New EKG reveals inverted T wave in V4,5,6 and II, III. pt is still Hemody namic stable. pt was given Aspirin 325mg, pt is on Eliquis, add Statin, pt is not on beta marcel because of bradycardia. New ECHO done two days ago showed reduced EF 30-35% from previous 40-45%. pt is willing to be transferred and have procedure as needed to high level of care. Called to [facility], Dr. Cox, is very kindly accepting pt, Thanks. Pt will be transferred to [facility] for high level of care. (2) new A-fib Patient Developed a new afib, pt had high chadsvasc score, started on Eliquis bid. (3) Junctional bradycardia Last night pt developed HR at 25, and three seconds block although pt's home Metoprolol was hold in hospital. Followup with [facility] in [place] for high level of care. (4) CHF exacerbation New ECHO done two days ago showed reduced EF 30-35% from previous 40-45%, and moderate abnormal right heart pressure and elevated RVSP to 62 mmHG. pt presented Anasarca in the admission. pt's BNP was over 5000 in the admission. pt urinate significant amount after pt was given IV diuretics and pt did report he feel much better. continue high level care in [facility]. 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 Patient report he recently gained 20 pounds. He feel very short of breathing even when he walk about 15 feet. He report his bilateral lower extremity, abdomen, hand become "puffy". He denies fever, chill. He will report he saw his primary care about a 15 days ago, His primary care prescribed diuretics medicine only had for 12 days. Patient report his PCP worried about diuretics Medication affect his kidney function. He has no diuretic medications for 3 days. Patient also report he had radiation therapy for his lung cancer "I think the radiation therapy targeted my lung spot". He followed up with his oncologist Dr. Boudreaux. Routine laboratory tests show His BNP was over 5000.CT of the chest show fairly stable appearance Of the left lung, Stable right pleural plaque and several nodules, Development of fairly significant anasarca, mesenteric edema and small abdominal ascites, Chronic loculated left lateral lower lung fluid Collection, Several thoracic spinal compression fractures. Chest x-ray on today show no definite any new focal consolidation since yesterday, Right lung developed possibility of early pulmonary edema. Given above medical condition, medical team was consulted for admission. Discussed care goal for patient, Patient clearly state he is DNR/DNI. - HOSPITAL COURSE Hospital Course: Patient was admitted for shortness of breathing special on exertion and weakn ess. pt present severe Anasarca and edema on his Lower extremity, abdomen, upper extremity. Patient was found to have BNP over 5000. Patient denied take diuretics for couple days. Patient was given intravenous diuretics. Patient urinated significant amount. Patient had a normal kidney function. Patient develop new atrial fibrillation, severe bradycardia and chest pain. Patient was found to have NSTEMI. The case was reported to [facility]. [employer] Dr. Cox was very kindly to accept the patient for further higher level of care. Thanks. - ALLERGIES Allergies/Adverse Reactions: Allergies Allergy/AdvReac Type Severity Reaction Status Date / Time No Known Drug Allergies Allergy Verified 10/21/20 14:57 - MEDICATIONS Home Medications: Ambulatory Orders Medication Instructions Recorded Confirmed Aspirin Chewable [St Epi 81 mg PO BID 07/12/13 10/22/20 Aspirin] Albuterol Sulfate [Proair Hfa 2 puffs INH Q4H PRN 09/29/16 10/22/20 Inhaler] Atorvastatin Calcium [Lipitor] 80 mg PO DAILY 10/21/20 10/22/20 Metoprolol Succinate [Toprol Xl] 200 mg PO DAILY 10/21/20 10/22/20 buPROPion HCL [Bupropion HCl Sr] 150 mg PO DAILY 10/21/20 10/22/20 Fluticasone 110 Mcg [Flovent] 2 puffs INH BID 10/22/20 10/22/20 Losartan [Cozaar] 50 mg PO DAILY 10/22/20 10/22/20 Tiotropium [place] [Spiriva] 1 cap INH DAILY 10/22/20 10/22/20 - PHYSICAL EXAM AT DISCHARGE General Appearance: positive: No acute distress, Alert. negative: Lethargic Eyes Bilateral: positive: Normal inspection, PERRL, No lid inflammation ENT: positive: ENT inspection nml, No signs of dehydration. negative: Purulent nasal drainage Neck: positive: Nml inspection, Trachea midline. negative: Thyromegaly, Tracheal deviation Respiratory: positive: Chest non-tender, No respiratory distress. negative: Rales Cardiovascular: positive: No murmur, Irregularly irregular, Bradycardia. negative: Tachycardia, Systolic murmur Peripheral Pulses: positive: 2+ Abdomen: positive: Non-tender, Nml bowel sounds, No distention. negative: Tenderness, Guarding Back: positive: Nml inspection Skin: positive: Color nml, Warm, Dry. negative: Cyanosis, Diaphoresis, Pallor Extremities: positive: Non-tender, Full ROM, Nml appearance, Pedal edema. negative: Calf tenderness Neurologic/Psychiatric: positive: Oriented x3, Motor nml, Sensation nml. negative: Sensory loss, Facial droop, Slurred/abnml speech, Depressed mood/affect - LABS Result Diagrams: 10/23/20 05:16 10/23/20 05:16 - FOLLOW UP Follow Up: transferred to [facility] for high level of care - TIME SPENT Time Spent in Discharge (Minutes): 30
[2020-10-23 13:24] VITALS: BP 107/49
[2020-10-23] MEDS ORDERED: FUROSEMIDE 40 MG/4 ML VIAL IVP SCH ×2 (14:00)
== END 2020-10-23 14:15 | disposition short-term general hospital (02) | DRG 281 ==
LOC: ED 14:50 → MS2 18:06 → ED 18:34
PROVIDERS: ADMIT Nurse Practitioner Gerontology; ATTEND Nurse Practitioner Gerontology
DX: I11.0 Hypertensive heart disease with heart failure (principal); I21.4 Non-ST elevation (NSTEMI) myocardial infarction; C34.12 Malignant neoplasm of upper lobe, left bronchus or lung; I50.43 Acute on chronic combined systolic (congestive) and diastolic (congestive) heart failure; F17.200 Nicotine dependence, unspecified, uncomplicated; I25.10 Atherosclerotic heart disease of native coronary artery without angina pectoris; C34.90 Malignant neoplasm of unspecified part of unspecified bronchus or lung; E78.5 Hyperlipidemia, unspecified; I48.91 Unspecified atrial fibrillation; R00.1 Bradycardia, unspecified; G47.30 Sleep apnea, unspecified; J44.9 Chronic obstructive pulmonary disease, unspecified; F17.210 Nicotine dependence, cigarettes, uncomplicated; Z66 Do not resuscitate; Z79.82 Long term (current) use of aspirin; Z79.51 Long term (current) use of inhaled steroids; Z79.52 Long term (current) use of systemic steroids; Z79.899 Other long term (current) drug therapy; Z95.5 Presence of coronary angioplasty implant and graft; Z95.0 Presence of cardiac pacemaker; Z87.01 Personal history of pneumonia (recurrent); Z92.3 Personal history of irradiation
CPT/HCPCS: 36415; 71045; 80048; 80053; 80061; 82803; 83690; 83880; 84484; 85025; 87631; 93005; 93306; 93970; 96374; 97161; 97165; 99285; A9270; J1650; 0202U; 83721; 90686

== ENCOUNTER 2020-10-23 14:15 | Outpatient (CLI) | payer MEDICARE, OTHER | END 2020-10-23 14:16 | disposition short-term general hospital (02) | LOC: EMS 14:15 | DX: I21.4 Non-ST elevation (NSTEMI) myocardial infarction (principal); R00.1 Bradycardia, unspecified; I50.9 Heart failure, unspecified | CPT/HCPCS: A0425; A0428 ==

== ENCOUNTER 2020-11-14 19:22 | Emergency (ER) | payer MEDICARE, OTHER ==
--- NOTE | 2020-11-14 19:47 | ED Physician Documentation ---
History of Present Illness - Stated complaint Stated Complaint: RT LEG PX - Chief complaint Chief Complaint: General - History obtained from History obtained from: Patient - Additonal information Additional information: This is a 75-year-old gentleman who presents for leg pain. He has a history of atrial fibrillation on Eliquis, CHF, coronary disease status post bypass, active tobacco abuse. He went to his doctor's a few days ago and after that his right leg became puffy. He has been wearing compression stockings last couple of days but today his right leg is profoundly painful although declines additional pain medicine having taken 2 Tylenol a couple of hours ago. He says his breathing is not any worse than any other day. Denies chest pain. No fevers. Review of Systems Ten Systems: 10 systems reviewed and negative Constitutional: denies: Fever, Chills Cardiac: denies: Chest pain / pressure, Palpitations Respiratory: reports: Dyspnea (chronic), Cough (chronic) GI: denies: Abdominal Pain, Nausea, Vomiting PD PAST MEDICAL HISTORY - Past Medical History Cardiovascular: Hypertension, Coronary artery disease Respiratory: COPD Neuro: None Endocrine/Autoimmune: None GI: Colon polyps : None HEENT: None Psych: None Musculoskeletal: None Derm: None - Past Surgical History General: Appendectomy, Colonoscopy Cardiovascular: Coronary stent - Present Medications Home Medications: Ambulatory Orders Medication Instructions Recorded Confirmed Albuterol Sulfate [Proair Hfa 2 puffs INH Q4H PRN 09/29/16 11/14/20 Inhaler] Atorvastatin Calcium [Lipitor] 80 mg PO DAILY 10/21/20 11/14/20 Metoprolol Succinate [Toprol Xl] 200 mg PO DAILY 10/21/20 11/14/20 buPROPion HCL [Bupropion HCl Sr] 150 mg PO DAILY 10/21/20 11/14/20 Fluticasone 110 Mcg [Flovent] 2 puffs INH BID 10/22/20 11/14/20 Losartan [Cozaar] 50 mg PO DAILY 10/22/20 11/14/20 Tiotropium [place] [Spiriva] 1 cap INH DAILY 10/22/20 11/14/20 Apixaban [Eliquis] 5 mg PO BID 11/14/20 11/14/20 Spironolactone [Aldactone] 25 mg PO DAILY 11/14/20 11/14/20 Torsemide 20 mg PO BID 11/14/20 11/14/20 - Allergies Allergies/Adverse Reactions: Allergies Allergy/AdvReac Type Severity Reaction Status Date / Time No Known Drug Allergies Allergy Verified 11/14/20 19:33 - Social History Does the pt smoke?: Yes Smoking Status: Current every day smoker Does the pt drink ETOH?: No Does the pt have substance abuse?: No - Immunizations Immunizations: TDAP >10years/unknown - POLST Patient has POLST: No PD ED PE NORMAL - Vitals Vital signs reviewed: Yes - General General: Alert and oriented X 3, Other (Somewhat disheveled) - HEENT HEENT: PERRL, EOMI - Neck Neck: Supple, no meningeal sign, No bony TTP - Cardiac Cardiac: Other (Irregularly irregular) - Respiratory Respiratory: Other (Loud rhonchorous breathing) - Abdomen Abdomen: Soft, Non tender - Extremities Extremities: Other (Right lower extremity is swollen from the knee down with mild cellulitic changes. I do not appreciate any pedal pulses. About 6-second capillary refill in the feet.) - Neuro Neuro: Alert and oriented X 3, Normal speech Results - Vitals Vitals: Vital Signs - 24 hr 11/14/20 11/14/20 11/14/20 19:33 21:14 22:30 Temperature 36.7 C Heart Rate 81 83 85 Respiratory 20 23 22 Rate Blood Pressure 94/45 L 80/46 L 117/49 L O2 Saturation 92 95 99 11/14/20 11/15/20 11/15/20 23:58 02:13 02:45 Temperature Heart Rate 74 84 84 Respiratory 22 18 18 Rate Blood Pressure 104/55 L 111/53 L O2 Saturation 97 98 Oxygen O2 Source Room air - Labs Labs: Laboratory Tests 11/14/20 11/14/20 11/14/20 19:59 19:59 19:59 WBC 11.7 H RBC 3.43 L Hgb 10.6 L Hct 32.8 L MCV 95.6 H MCH 30.9 MCHC 32.3 RDW 15.5 H Plt Count 152 MPV 10.0 Neut # (Auto) Not Reportable Lymph # (Auto) Not Reportable Pacific # (Auto) Not Reportable Eos # (Auto) Not Reportable Baso # (Auto) Not Reportable Absolute Nucleated RBC Not Reportable Total Counted 100 Band Neuts % (Manual) 7 Abnorm Lymph % (Manual) 0 Nucleated RBC % Not Reportable Neutrophils # (Manual) 10.8 H Lymphocytes # (Manual) 0.6 L Monocytes # (Manual) 0.4 Eosinophils # (Manual) 0.0 Basophils # (Manual) 0.0 Differential Comment MANUAL DIFFERENTIAL Manual Slide Review Indicated Platelet Estimate NORMAL (130-450,000) Platelet Morphology NORMAL APPEARANCE RBC Morph Micro Appear 2+ ACANTHOCYTES Sodium 136 Potassium 3.1 L Chloride 90 L Carbon Dioxide 32 Anion Gap 14.0 H BUN 62 H Creatinine 2.4 H Estimated GFR (MDRD) 26 L Glucose 98 Lactic Acid 1.6 Calcium 8.6 Nasal Adenovirus (PCR) Nasal B. parapertussis DNA (PCR) Nasal Coronavir 229E PCR Nasal Coronavir HKU1 PCR Nasal Coronavir NL63 PCR Nasal Coronavir OC43 PCR Nasal Enterovir/Rhinovir PCR Nasal Influenza B PCR Nasal Influenza A PCR Nasal Parainfluen 1 PCR Nasal Parainfluen 2 PCR Nasal Parainfluen 3 PCR Nasal Parainfluen 4 PCR Nasal RSV (PCR) Nasal B.pertussis DNA PCR Nasal C.pneumoniae (PCR) Moshe Human Metapneumo PCR Nasal M.pneumoniae (PCR) Nasal SARS-CoV-2 (PCR) 11/14/20 21:33 WBC RBC Hgb Hct MCV MCH MCHC RDW Plt Count MPV Neut # (Auto) Lymph # (Auto) Pacific # (Auto) Eos # (Auto) Baso # (Auto) Absolute Nucleated RBC Total Counted Band Neuts % (Manual) Abnorm Lymph % (Manual) Nucleated RBC % Neutrophils # (Manual) Lymphocytes # (Manual) Monocytes # (Manual) Eosinophils # (Manual) Basophils # (Manual) Differential Comment Manual Slide Review Platelet Estimate Platelet Morphology RBC Morph Micro Appear Sodium Potassium Chloride Carbon Dioxide Anion Gap BUN Creatinine Estimated GFR (MDRD) Glucose Lactic Acid Calcium Nasal Adenovirus (PCR) NOT DETECTED Nasal B. parapertussis DNA (PCR) NOT DETECTED Nasal Coronavir 229E PCR NOT DETECTED Nasal Coronavir HKU1 PCR NOT DETECTED Nasal Coronavir NL63 PCR NOT DETECTED Nasal Coronavir OC43 PCR NOT DETECTED Nasal Enterovir/Rhinovir PCR NOT DETECTED Nasal Influenza B PCR NOT DETECTED Nasal Influenza A PCR NOT DETECTED Nasal Parainfluen 1 PCR NOT DETECTED Nasal Parainfluen 2 PCR NOT DETECTED Nasal Parainfluen 3 PCR NOT DETECTED Nasal Parainfluen 4 PCR NOT DETECTED Nasal RSV (PCR) NOT DETECTED Nasal B.pertussis DNA PCR NOT DETECTED Nasal C.pneumoniae (PCR) NOT DETECTED Moshe Human Metapneumo PCR NOT DETECTED Nasal M.pneumoniae (PCR) NOT DETECTED Nasal SARS-CoV-2 (PCR) NOT DETECTED PD MEDICAL DECISION MAKING - ED course ED course: 75-year-old gentleman with history of vascular disease and active tobacco abuse as well as COPD presents with rest pain in his right leg and a brawny appearance. No palpable pedal pulses and very slow capillary refill. Arterial ultrasound preliminary report confirms basically no flow in the right leg and [facility] was called for transport around 9:20 PM. I updated his daugh ter-in-law by phone at his request, Kylah, she is appreciative, she is available at [phone]. Heparin bolus and drip were instituted. Of note he also has acute kidney injury, he was discharged on 2 diuretics, he think he recognizes furosemide and Aldactone after his last hospitalization at [facility]. He had some soft blood pressures and was given a small fluid bolus and then started on maintenance fluids. S/O to Dr Beltran at shift change, waiting for [facility] to call back. Departure - Departure Disposition: 02 Transfer Acute Care Hosp Clinical Impression: Occlusion of artery of leg, [place] (acute kidney injury) Condition: Serious Discharge Date/Time: 11/15/20 02:45
[2020-11-14 20:07] LABS: BASOPHILS % (AUTO) 0.6 %; EOSINOPHILS % (AUTO) 0.5 %; HCT - HEMATOCRIT 32.8 % (42.0-52.0); HGB - HEMOGLOBIN 10.6 g/dL (14.0-18.0); LYMPHOCYTES % (AUTO) 2.5 %; MEAN CORPUSCULAR HEMOGLOBIN 30.9 pg (27.0-31.0); MEAN CORPUSCULAR HGB CONC 32.3 g/dL (32.0-36.0); MEAN CORPUSCULAR VOLUME 95.6 fL (80.0-94.0); MONOCYTES % (AUTO) 4.3 %; NEUTROPHILS % (AUTO) 90.2 %; PLT - PLATELET COUNT 152 10^3/uL (130-450); RED BLOOD COUNT 3.43 10^6/uL (4.70-6.10); RED CELL DISTRIBUTION WIDTH 15.5 % (12.0-15.0); WHITE BLOOD COUNT 11.7 x10^3/uL (4.8-10.8)
[2020-11-14 20:15] LABS: CALCIUM 8.6 mg/dL (8.5-10.3); CREATININE 2.4 mg/dL (0.6-1.2); POTASSIUM 3.1 mmol/L (3.5-5.0)
[2020-11-14 20:16] LABS: SLIDE REVIEW? Indicated
[2020-11-14 20:17] LABS: ABNORMAL LYMPHS % (MANUAL) 0 %
[2020-11-14 20:34] LABS: BAND NEUTROPHILS % (MANUAL) 7 %; LYMPHOCYTES # (MANUAL) 0.6 10^3/uL (1.5-3.5); LYMPHOCYTES % (MANUAL) 5 %; MONOCYTES # (MANUAL) 0.4 10^3/uL (0.0-1.0); NEUTROPHILS # (MANUAL) 10.8 10^3/uL (1.5-6.6)
[2020-11-14 20:35] LABS: DIFFERENTIAL COMMENT MANUAL DIFFERENTIAL; PLATELET ESTIMATE, MANUAL NORMAL (130-450,000) (NORMAL); PLATELET MORPHOLOGY NORMAL APPEARANCE (NORMAL); RBC MORPHOLOGY (MULTIPLE) 2+ ACANTHOCYTES (NORMAL)
[2020-11-14] MEDS ORDERED: NS W/20 MEQ KCL 1,000 ML IV SCH (21:00)
[2020-11-14] MEDS ORDERED: SODIUM CHLORIDE 0.9% 500 ML IV STA (21:09)
[2020-11-14] MEDS ORDERED: HEPARIN 25000UNITS/500ML (D5W) 25,000 UNIT/500 ML BAG IV SCH (22:00)
[2020-11-14 22:34] LABS: B. PARAPERTUSSIS- RESP PCR PAN NOT DETECTED; B. PERTUSSIS- RESP PCR PANEL NOT DETECTED; C. PNEUMONIAE- RESP PCR PANEL NOT DETECTED; CORONAVIRUS 229E-RESP PCR NOT DETECTED; CORONAVIRUS HKU1-RESP PCR NOT DETECTED; CORONAVIRUS NL63-RESP PCR NOT DETECTED; CORONAVIRUS OC43-RESP PCR NOT DETECTED; HUMAN METAPNEUMOVIRUS NOT DETECTED; INFLUENZA A- RESP PCR PANEL NOT DETECTED; INFLUENZA B - RESP PCR PANEL NOT DETECTED; M. PNEUMONIAE- RESP PCR PANEL NOT DETECTED; PARAINFLUENZA VIRUS 1 NOT DETECTED; PARAINFLUENZA VIRUS 2 NOT DETECTED; PARAINFLUENZA VIRUS 3 NOT DETECTED; PARAINFLUENZA VIRUS 4 NOT DETECTED; RHINOVIRUS/ENTEROVIRUS NOT DETECTED; RSV- RESP PCR PANEL NOT DETECTED; SARS-CoV-2 -RESP PCR PANEL NOT DETECTED
--- NOTE | 2020-11-15 00:38 | ED Physician Documentation ---
ED Addendum - Addendum Addendum: 11/15/20 00:35 Received sign out from Dr. Perry at end of his shift awaiting call back from [facility] for likely transfer. I evaluated patient and he is AAOx3 and in NAD.He has circumferential edema of RLE from distal thigh to toes with hemorrhagic bullae on right foot and toes. The leg is erythematous. Cannot palpate a pulse and delayed capillary refill (6- 10 seconds). arterial US had demonstrated significant occlusions in multiple arteries. At approximately 11:35 PM, I head from Dr. Jesus, hospitalist at [facility]. He asks that I d/w vascular surgery at [facility] before accepting transfer. As of 12:35 AM, continuing to await to hear from vascular surgery. 11/15/20 01:30 D/W ESTEBAN Espino. She then relayed the information to the vascular surgical attending and then ESTEBAN Espino called me back. The call was dropped during this conversation but she subsequently called back and recommends admit to hospitalist at [facility]. I subsequently heard back from transfer center and was told that Dr. Jesus accepts transfer to [facility]. I rechecked patient and he is asleep, easily awakens to voice. He has movement of RLE (foot, toes, ankle), LTS intact right foot and toes.
[2020-11-15 02:14] VITALS: BP 111/53
[2020-11-15] MEDS ORDERED: ALBUTEROL 1 PUFF INH STA (02:40)
--- NOTE | 2020-11-15 07:24 | Ultrasound Report ---
PROCEDURE: Duplex Ext Veins Right INDICATIONS: RLE pain TECHNIQUE: Real-time imaging, as well as color and pulse Doppler interrogation, were performed of the lower extr emity deep veins from the inguinal ligament to the popliteal fossa. COMPARISON: None. FINDINGS: The deep veins are normally compressible, and free of intraluminal thrombus. Color and pu lse Doppler demonstrate normal phasic intraluminal flow. There is normal augmentation response to di stal compression maneuver. IMPRESSION: Negative right lower extremity duplex ultrasound for DVT. A preliminary report with the above findings was provided at the time of the study by [facility]. Reviewed by: Chinedu Chowdary MD on 11/15/2020 6:22 AM [facility] Approved by: Chinedu Chowdary MD on 11/15/2020 6:22 AM [facility] Station ID: [id number]
--- NOTE | 2020-11-15 07:31 | Ultrasound Report ---
PROCEDURE: Duplex Lwr Ext Arterial RT INDICATIONS: RLE pain, no palp pulses TECHNIQUE: Color and pulse Doppler interrogation was performed of the right lower extremity arterial system, wit h image documentation. COMPARISON: None FINDINGS: Common femoral artery: 49 cm/sec, with monophasic flow. Deep femoral artery: 57 cm/sec, with monophasic parvus/tardus waveform . Proximal superficial femoral artery: Occluded Mid superficial femoral artery: Occluded Distal superficial femoral artery: 47 cm/sec, with monophasic flow. Popliteal artery: 20 cm/sec, with monophasic flow. Posterior tibial artery: 18 cm/sec, with monophasic flow. Anterior tibial artery/dorsalis pedis: 11 cm/sec, with monophasic flow. Salas-scale imaging description: Extensive calcified right common femoral artery disease with monopha sic flow suggesting inflow disease. Parvus tardus profunda waveform. Occluded proximal and mid SFA wi th minimal monophasic flow distal to the mid SFA. IMPRESSION: 1. Monophasic waveform in the common femoral suggests inflow aortoiliac disease. 2. Extensive calcified stenotic disease of the common femoral. 3. Proximal and mid SFA are occluded with minimal flow distal to the occlusion with monophasic low re sistance waveforms. A preliminary report with the above findings was provided at the time of the study by [facility]. Reviewed by: Chinedu Chowdary MD on 11/15/2020 6:29 AM [facility] Approved by: Chinedu Chowdary MD on 11/15/2020 6:29 AM [facility] Station ID: [id number]
== END 2020-11-15 02:45 | disposition short-term general hospital (02) ==
LOC: ED 19:22
DX: I74.3 Embolism and thrombosis of arteries of the lower extremities (principal); N17.9 Acute kidney failure, unspecified; L03.115 Cellulitis of right lower limb; R23.8 Other skin changes; Z20.822 Contact with and (suspected) exposure to COVID-19; I48.91 Unspecified atrial fibrillation; Z79.01 Long term (current) use of anticoagulants; I11.0 Hypertensive heart disease with heart failure; I50.9 Heart failure, unspecified; I25.10 Atherosclerotic heart disease of native coronary artery without angina pectoris; Z95.1 Presence of aortocoronary bypass graft; J44.9 Chronic obstructive pulmonary disease, unspecified; F17.200 Nicotine dependence, unspecified, uncomplicated
CPT/HCPCS: 0202U; 36415; 80048; 83605; 85025; 94640; 94664; 96365; 96366; 96368; 96376; 99284

== ENCOUNTER 2020-11-15 02:48 | Outpatient (CLI) | payer MEDICARE, OTHER | END 2020-11-15 02:49 | disposition short-term general hospital (02) | LOC: EMS 02:48 | PROVIDERS: ATTEND Emergency Medicine | DX: R60.0 Localized edema (principal) | CPT/HCPCS: A0425; A0426 ==

== ENCOUNTER 2021-03-31 19:00 | Emergency (ER) | payer MEDICARE, OTHER ==
[2021-03-31 19:06] VITALS: BP 144/70
--- NOTE | 2021-03-31 20:10 | ED Physician Documentation ---
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 Is a longstanding history of a left inguinal hernia and he has seen Dr. Masters's office for this twice, both times the surgeon felt that he was not a good surgical candidate due to his comorbidities. Over the last few days the hernia has become much larger. Review of Systems Constitutional: reports: Reviewed and negative Eyes: reports: Reviewed and negative Ears: reports: Reviewed and negative Nose: reports: Reviewed and negative Throat: reports: Reviewed and negative Cardiac: reports: Reviewed and negative PD PAST MEDICAL HISTORY - Past Medical History Cardiovascular: Hypertension, Coronary artery disease Respiratory: COPD Neuro: None Endocrine/Autoimmune: None GI: Colon polyps : None HEENT: None Psych: None Musculoskeletal: None Derm: None - Past Surgical History General: Appendectomy, Colonoscopy Cardiovascular: Coronary stent - Present Medications Home Medications: Ambulatory Orders Medication Instructions Recorded Confirmed Albuterol Sulfate [Proair Hfa 2 puffs INH Q4H PRN 09/29/16 11/14/20 Inhaler] Atorvastatin Calcium [Lipitor] 80 mg PO DAILY 10/21/20 11/14/20 Metoprolol Succinate [Toprol Xl] 200 mg PO DAILY 10/21/20 11/14/20 buPROPion HCL [Bupropion HCl Sr] 150 mg PO DAILY 10/21/20 11/14/20 Fluticasone 110 Mcg [Flovent] 2 puffs INH BID 10/22/20 11/14/20 Losartan [Cozaar] 50 mg PO DAILY 10/22/20 11/14/20 Tiotropium [place] [Spiriva] 1 cap INH DAILY 10/22/20 11/14/20 Apixaban [Eliquis] 5 mg PO BID 11/14/20 11/14/20 Spironolactone [Aldactone] 25 mg PO DAILY 11/14/20 11/14/20 Torsemide 20 mg PO BID 11/14/20 11/14/20 - Allergies Allergies/Adverse Reactions: Allergies Allergy/AdvReac Type Severity Reaction Status Date / Time No Known Drug Allergies Allergy Verified 03/31/21 19:03 - Social History Does the pt smoke?: Yes Smoking Status: Current every day smoker Does the pt drink ETOH?: No Does the pt have substance abuse?: No - Immunizations Immunizations: TDAP >10years/unknown - POLST Patient has POLST: No PD ED PE NORMAL - Vitals Vital signs reviewed: Yes - General General: Alert and oriented X 3, No acute distress - Abdomen Abdomen: Normal bowel sounds, Soft, Non tender - Male Male : Other (There is a massive left inguinal hernia that extends into the scrotum. I was able to completely reduce this on examination.) - Neuro Neuro: Alert and oriented X 3, Normal speech Results - Vitals Vitals: Vital Signs - 24 hr 03/31/21 19:03 Temperature 36.5 C Heart Rate 68 Respiratory 18 Rate Blood Pressure 144/70 H O2 Saturation 92 Oxygen O2 Source Room air Departure - Departure Disposition: 01 Home, Self Care Clinical Impression: Inguinal hernia of left side without obstruction or gangrene Condition: Good Record reviewed to determine appropriate education?: Yes Instructions: ED Hernia Inguinal Follow-Up: Sesar Masters MD [Provider Admit Priv/Credential] - Comments: As discussed Tom you have a massive left inguinal hernia. Because of your medical issues my suspicion is that the surgeon will still feel that you are a poor surgical candidate, but I encourage you to see him again for reconsultation. If the hernia swells up again, return anytime for reattempt at reduction.
== END 2021-03-31 20:17 | disposition home or self-care (01) ==
LOC: ED 19:00
DX: K40.90 Unilateral inguinal hernia, without obstruction or gangrene, not specified as recurrent (principal); I10 Essential (primary) hypertension; I25.10 Atherosclerotic heart disease of native coronary artery without angina pectoris; Z95.1 Presence of aortocoronary bypass graft; Z79.01 Long term (current) use of anticoagulants; J44.9 Chronic obstructive pulmonary disease, unspecified; F17.200 Nicotine dependence, unspecified, uncomplicated; Z85.118 Personal history of other malignant neoplasm of bronchus and lung; Z89.611 Acquired absence of right leg above knee
CPT/HCPCS: 99281; 99283